=== PATIENT | female | born 1955 ===

== ENCOUNTER 2016-09-08 03:25 | Emergency (ER) | payer MEDICAID ==
[2016-09-08 03:26] VITALS: BMI 31.1
[2016-09-08 03:50] LABS: RBC URINE < 1 /hpf (0-3); URINE BILIRUBIN NEGATIVE (NEGATIVE); URINE BLOOD NEGATIVE (NEGATIVE); URINE COLOR Straw (YELLOW); URINE GLUCOSE (UA) NORMAL (Normal); URINE KETONE NEGATIVE (NEGATIVE); URINE LEUKOCYTE ESTERASE NEG Leu/uL (Negative); URINE PROTEIN NEGATIVE (NEGATIVE); URINE UROBILINOGEN NORMAL mg/dL (0.2-1.0)
[2016-09-08 04:25] LABS: BASO % 0.7 % (0.0-2.0); EOS # 0.1 K/uL (0.0-0.7); EOS % 1.1 % (0.0-4.0); HEMATOCRIT 35.1 % (34.0-47.0); LYMPH # 2.9 K/uL (1.0-4.3); LYMPH % 53.3 % (20.0-40.0); MEAN CELL VOLUME 91.1 fL (81.0-99.0); MEAN CORPUSCULAR HEMOGLOBIN 30.2 pg (27.0-31.0); MEAN CORPUSCULAR HGB CONC 33.2 g/dL (33.0-37.0); MEAN PLATELET VOLUME 9.3 fL (7.2-11.7); MONO # 0.5 K/uL (0.0-0.8); MONO % 8.2 % (0.0-10.0); NRBC % 0.2 % (0.0-2.0); RED CELL DISTRIBUTION WIDTH 14.3 % (11.5-14.5); WHITE BLOOD COUNT 5.5 K/uL (4.8-10.8)
[2016-09-08 04:32] LABS: CHLORIDE 106 mmol/L (98-107); POTASSIUM 4.1 mmol/L (3.6-5.2); SODIUM 139 mmol/L (132-148)
[2016-09-08 04:34] LABS: AST/SGOT 24 U/L (14-36); BILIRUBIN,TOTAL 0.3 mg/dL (0.2-1.3); CARBON DIOXIDE 26 mmol/L (22-30); GFR AFRICAN-AMERICAN > 60
[2016-09-08 04:35] LABS: ALB/GLOB RATIO 1.1 (1.0-2.1); ALKALINE PHOSPHATASE 42 U/L (38-126); ALT/SGPT 27 U/L (9-52); BLOOD UREA NITROGEN 14 mg/dL (7-17); CALCIUM 8.4 mg/dl (8.6-10.4); GLUCOSE,RANDOM 102 mg/dL (65-105); TOTAL PROTEIN 6.6 g/dL (6.3-8.3)
--- NOTE | 2016-09-08 04:57 | C.PDOC ---
History Of Present Illness 61 year old female presents to the ED with complaints of polyuria and abdominal bloating for two days. Patient has a history of frequent UTIs and denies diabetes, fever, or dysuria. Time Seen by Provider: 09/08/16 04:02 Chief Complaint (Nursing): Female Genitourinary History Per: Patient History/Exam Limitations: no limitations Onset/Duration Of Symptoms: Days (2) Current Symptoms Are (Timing): Still Present Location Of Pain/Discomfort: Diffuse Radiation Of Pain To:: None Quality Of Discomfort: "Pain" Associated Symptoms: denies: Fever, Chills, Nausea, Vomiting Recent travel outside of the [place]: No Abnormal Vaginal Bleeding: No Past Medical History Reviewed: Historical Data, Nursing Documentation, Vital Signs Vital Signs: Last Vital Signs Temp 98 F 09/08/16 05:04 Pulse 60 09/08/16 05:04 Resp 20 09/08/16 05:04 BP 153/90 H 09/08/16 05:04 Pulse Ox 100 09/08/16 05:04 - Medical History PMH: Hypothyroidism Surgical History: - [facility] Procedures INJECT/INFUSE NEC (03/21/14) Family History: States: Unknown Family Hx - Social History Hx Alcohol Use: No Hx Substance Use: No - Immunization History Hx Tetanus Toxoid Vaccination: No Hx Influenza Vaccination: No Hx Pneumococcal Vaccination: No Review Of Systems Constitutional: Negative for: Fever, Chills, Sweats Cardiovascular: Negative for: Chest Pain, Palpitations Gastrointestinal: Positive for: Other (polyuria and abdominal bloating ). Negative for: Nausea, Vomiting Physical Exam - Physical Exam Appears: Non-toxic, No Acute Distress, Other (central obesity ) Skin: Warm, Dry Head: Atraumatic Eye(s): bilateral: Normal Inspection Oral Mucosa: Moist Neck: Supple Chest: Symmetrical, No Deformity Cardiovascular: Rhythm Regular Respiratory: No Rales, No Rhonchi, No Stridor, No Wheezing Gastrointestinal/Abdominal: Soft, No Tenderness, No Distention, No Guarding, No Rebound Extremity: Normal ROM, No Tenderness Neurological/Psych: Oriented x3 ED Course And Treatment - Laboratory Results Result Diagrams: 09/08/16 04:21 09/08/16 04:21 Lab Interpretation: Normal (ua neg.) O2 Sat by Pulse Oximetry: 98 (room air ) - Other Rad abd x 3 X-Ray: Interpreted by Me (+FOS) Reevaluation Time: 04:56 Reassessment Condition: Unchanged Medical Decision Making Medical Decision Making: constipation Disposition Doctor Will See Patient In The: Office Counseled Patient/Family Regarding: Studies Performed, Diagnosis - Disposition Referrals: Madan Shelley MD [Medical Doctor] - Disposition: HOME/ ROUTINE Disposition Time: 04:57 Condition: GOOD Additional Instructions: cholo un purgante ahora (Citrato de Magnesio) y re-evalua sigala molestia del abdomen despues de usar el sera 2-3 veces Cholo un esuavesante de los heces 2 veces al lauryn come mas saludable, mas verduras crudas cholo mas agua. Sigue con sigala medico kelsy necessario. Instructions: Constipation (ED), Gas and Bloating (ED) Print Language: SETSWANA - Clinical Impression Clinical Impression: Colicky periumbilical abdominal pain - Scribe Statement The provider has reviewed the documentation as recorded by the Scribe Julieta Juárez All medical record entries made by the Scribe were at my direction and personally dictated by me. I have reviewed the chart and agree that the record accurately reflects my personal performance of the history, physical exam, medical decision making, and the department course for this patient. I have also personally directed, reviewed, and agree with the discharge instructions and disposition.
[2016-09-08 05:08] VITALS: BP 153/90; PULSE 60; RESP 20; TEMP 98
[2016-09-08 07:08] VITALS: O2SAT 98
--- NOTE | 2016-09-08 11:19 | RAD ---
PROCEDURE: Radiographs of the chest and abdomen (obstructive series) HISTORY: Abdominal pain COMPARISON: No prior. TECHNIQUE: AP radiograph of the chest, with upright and supine radiographs of the abdomen. FINDINGS: CHEST: Lungs: Clear. Cardiovascular: Normal size heart. No pulmonary vascular congestion. Pleura: No pleural fluid. No pneumothorax. Other findings: None. ABDOMEN AND PELVIS: Bowel: There is large amount of stool in the colon. No evidence of mechanical obstruction. Free air: None. Bones: Unremarkable. Other findings: None. IMPRESSION: Constipation. No evidence of bowel obstruction. Clear lungs.
== END 2016-09-08 05:23 | disposition home or self-care (01) ==
LOC: C.ER 03:25
DX: R10.33 Periumbilical pain (principal)

== ENCOUNTER 2016-10-04 11:26 | Emergency (ER) | payer MEDICAID ==
[2016-10-04 11:26] VITALS: BMI 31.1
[2016-10-04 11:50] VITALS: BP 133/85
--- NOTE | 2016-10-04 13:27 | C.PDOC ---
History Of Present Illness 61 y/o female presents to the ED with complaints of right shoulder pain x1 month. Pt denies direct injury but states she was exercising and minor injury possible. Pt seen by PMD, given lidoderm patch and tylenol/codeine. Pt states no pain relief with meds. Pain is worse at night. Decreased ROM due to pain. He denies weakness, numbness or any other complaints. Time Seen by Provider: 10/04/16 12:14 Chief Complaint (Nursing): Upper Extremity Problem/Injury History Per: Patient History/Exam Limitations: no limitations Onset/Duration Of Symptoms: Days Current Symptoms Are (Timing): Still Present Quality: "Pain" Severity: Moderate Exacerbating Factor(s): Movement, Worse At Night Recent travel outside of the [place]: No Past Medical History Reviewed: Historical Data, Nursing Documentation, Vital Signs Vital Signs: Last Vital Signs Temp 98 F 10/04/16 13:50 Pulse 85 10/04/16 13:50 Resp 18 10/04/16 13:50 BP 133/85 10/04/16 11:48 Pulse Ox 100 10/04/16 14:02 - Medical History PMH: Hypothyroidism Surgical History: - [facility] Procedures INJECT/INFUSE NEC (03/21/14) Family History: States: Unknown Family Hx - Social History Hx Alcohol Use: No Hx Substance Use: No - Immunization History Hx Tetanus Toxoid Vaccination: No Hx Influenza Vaccination: No Hx Pneumococcal Vaccination: No Review Of Systems Constitutional: Negative for: Fever Musculoskeletal: Positive for: Shoulder Pain (right) Neurological: Negative for: Weakness, Numbness Physical Exam - Physical Exam Appears: Non-toxic, No Acute Distress Skin: Warm, Dry, No Rash Head: Atraumatic, Normacephalic Extremity: Normal ROM, Tenderness (diffuse right shoulder tenderness), Other ( soft tissue mass to right anterior acromioclavicular joint) Pulses: Right Radial: Normal Neurological/Psych: Oriented x3, Normal Speech, Normal Cognition, Normal Motor, Normal Sensation ED Course And Treatment O2 Sat by Pulse Oximetry: 100 (room air) Pulse Ox Interpretation: Normal - Other Rad Right shoulder xaray X-Ray: Read By Radiologist Interpretation: Accession No. : [id number]. Patient Name / ID : DARRIUS WOODARD / [id number]. Exam Date : 10/04/2016 13:15:36 ( Approved ). Study Comment : Sex / Age : F / 61Y. Creator : Nakita Nuñez MD. Dictator : Nakita Nuñez MD. Clinical Cytopathologist : Business Executive : Nakita Nueñz MD. Approver2 : Report Date : 15:02:34. My Comment : . PROCEDURE: Radiographs of the Right Shoulder. HISTORY: Shoulder pain. COMPARISON: No prior. FINDINGS: BONES: Bone alignment and mineralization. JOINTS: Glenohumeral and acromioclavicular joints preserved. No osteoarthritis. SOFT TISSUES: Normal. OTHER FINDINGS: None. IMPRESSION: No acute displaced fracture or dislocation. Progress Note: Plan: XR right shoulder, Arm sling was applied, follow up with ortho Disposition - Disposition Referrals: Kami Machado MD [Staff Provider] - Disposition: HOME/ ROUTINE Disposition Time: 13:52 Condition: STABLE Additional Instructions: Follow up with PMD / Orthopedist within 1-2 days. Return to ED if feel worse. Prescriptions: Ibuprofen [Motrin Tab] 600 mg PO Q8 #30 tab oxyCODONE/Acetaminophen [Percocet 5/325 mg Tab] 1 tab PO QID PRN #20 tab PRN Reason: Pain Instructions: Shoulder Pain (ED) Forms: [facility] (Chinese) - Clinical Impression Clinical Impression: Shoulder pain - PA / MAIL SORTING SUPERVISOR / Resident Statement MD/DO has reviewed & agrees with the documentation as recorded. - Scribe Statement The provider has reviewed the documentation as recorded by the Yasmani Han All medical record entries made by the Fcoibe were at my direction and personally dictated by me. I have reviewed the chart and agree that the record accurately reflects my personal performance of the history, physical exam, medical decision making, and the department course for this patient. I have also personally directed, reviewed, and agree with the discharge instructions and disposition.
[2016-10-04 13:51] VITALS: PULSE 85; RESP 18; TEMP 98
[2016-10-04 14:01] VITALS: O2SAT 100
--- NOTE | 2016-10-04 15:04 | RAD ---
PROCEDURE: Radiographs of the Right Shoulder HISTORY: Shoulder pain COMPARISON: No prior. FINDINGS: BONES: Bone alignment and mineralization JOINTS: Glenohumeral and acromioclavicular joints preserved. No osteoarthritis. SOFT TISSUES: Normal. OTHER FINDINGS: None. IMPRESSION: No acute displaced fracture or dislocation.
== END 2016-10-04 14:06 | disposition home or self-care (01) ==
LOC: C.ER 11:26
DX: M25.511 Pain in right shoulder (principal)

== ENCOUNTER 2017-09-21 13:06 | Emergency (ER) | payer MEDICAID ==
[2017-09-21 13:06] VITALS: BMI 31.1
[2017-09-21 13:11] VITALS: RESP 18; O2SAT 98
[2017-09-21] MEDS ORDERED: Belladonna-Phenobarbital PO STA (13:32)
[2017-09-21] MEDS ORDERED: Sodium Chloride 0.9% 1,000 ML IV ONE (13:32)
[2017-09-21] MEDS ORDERED: Belladonna-Phenobarbital ONE (13:38)
[2017-09-21 14:25] LABS: BASO % 0.3 % (0.0-2.0); EOS % 0.2 % (0.0-4.0); HEMOGLOBIN 12.3 g/dL (11.0-16.0); LYMPH % 15.4 % (20.0-40.0); MEAN CELL VOLUME 90.4 fL (81.0-99.0); MEAN CORPUSCULAR HEMOGLOBIN 30.9 pg (27.0-31.0); MEAN CORPUSCULAR HGB CONC 34.2 g/dL (33.0-37.0); MEAN PLATELET VOLUME 9.5 fL (7.2-11.7); MONO # 0.8 K/uL (0.0-0.8); MONO % 6.2 % (0.0-10.0); NEUT # 10.2 K/uL (1.8-7.0); NEUT % 77.9 % (50.0-75.0); RBC 3.99 Mil/uL (3.80-5.20); RED CELL DISTRIBUTION WIDTH 14.2 % (11.5-14.5)
[2017-09-21 14:26] LABS: WHITE BLOOD COUNT 13.1 K/uL (4.8-10.8)
[2017-09-21 14:38] LABS: ALB/GLOB RATIO 1.4 (1.0-2.1); ALBUMIN 4.6 g/dL (3.5-5.0); ALT/SGPT 27 U/L (9-52); AST/SGOT 26 U/L (14-36); BLOOD UREA NITROGEN 10 mg/dL (7-17); CALCIUM 9.2 mg/dl (8.6-10.4); GFR AFRICAN-AMERICAN > 60; GFR NON-AFRICAN AMERICAN > 60; LIPASE 92 U/L (23-300); SQUAMOUS EPITHIAL 2 /hpf (0-5); URINE BILIRUBIN NEGATIVE (NEGATIVE); URINE BLOOD 2+ (NEGATIVE); URINE CLARITY Clear (Clear); URINE COLOR Yellow (YELLOW); URINE GLUCOSE (UA) NORMAL (Normal); URINE LEUKOCYTE ESTERASE TRACE Leu/uL (Negative); URINE PROTEIN NEGATIVE (NEGATIVE); URINE UROBILINOGEN NORMAL mg/dL (0.2-1.0)
[2017-09-21] MEDS ORDERED: Alum-Mag Hydrox-Simethicone Susp (30 mL) PO STA (14:58)
[2017-09-21] MEDS ORDERED: Alum-Mag Hydrox-Simethicone Susp (30 mL) ONE (15:05)
--- NOTE | 2017-09-21 16:14 | C.PDOC ---
Time Seen by Provider: 09/21/17 13:25 Chief Complaint (Nursing): Abdominal Pain History Per: Patient, Family Onset/Duration Of Symptoms: Days (1) Current Symptoms Are (Timing): Still Present Severity: Moderate Location Of Pain/Discomfort: Diffuse, Epigastric Radiation Of Pain To:: None Quality Of Discomfort: Cramping, "Pain" Associated Symptoms: Nausea, Vomiting, Diarrhea Exacerbating Factors: Food Alleviating Factors: None Last Bowel Movement: Today Recent travel outside of the [place]: No Additional History Per: Prior Records Abnormal Vaginal Bleeding: No Past Medical History Reviewed: Historical Data, Nursing Documentation, Vital Signs Vital Signs: Last Vital Signs Temp 100.3 F H 09/21/17 13:08 Pulse 86 09/21/17 13:08 Resp 18 09/21/17 13:08 BP 158/99 H 09/21/17 13:08 Pulse Ox 98 09/21/17 13:08 - Medical History PMH: Hypothyroidism Surgical History: - [facility] Procedures INJECT/INFUSE NEC (03/21/14) Family History: States: Unknown Family Hx - Social History Hx Alcohol Use: No Hx Substance Use: No - Immunization History Hx Tetanus Toxoid Vaccination: No Hx Influenza Vaccination: No Hx Pneumococcal Vaccination: No Review Of Systems Except As Marked, All Systems Reviewed And Found Negative. Constitutional: Positive for: Malaise Cardiovascular: Negative for: Chest Pain Respiratory: Negative for: Shortness of Breath Gastrointestinal: Positive for: Nausea, Vomiting, Abdominal Pain, Diarrhea. Negative for: Melena, Hematochezia, Hematemesis Genitourinary: Negative for: Dysuria Musculoskeletal: Negative for: Neck Pain, Back Pain Skin: Negative for: Rash Neurological: Negative for: Weakness, Numbness Physical Exam - Physical Exam Appears: Non-toxic, No Acute Distress Skin: Normal Color, Warm, Dry, No Rash Head: Atraumatic, Normacephalic Eye(s): bilateral: Normal Inspection, PERRL, EOMI Neck: Normal ROM, Supple Cardiovascular: Rhythm Regular Respiratory: Normal Breath Sounds, No Accessory Muscle Use Gastrointestinal/Abdominal: Soft, Tenderness (nonspecific), No Guarding, No Rebound Back: No CVA Tenderness Extremity: Normal ROM Neurological/Psych: Oriented x3, Normal Motor, Normal Sensation ED Course And Treatment - Laboratory Results Result Diagrams: 09/21/17 14:22 09/21/17 14:22 O2 Sat by Pulse Oximetry: 98 Pulse Ox Interpretation: Normal Progress Note: Pt feels much better and and wants to go home. No abdominal tenderness. Reassessment Condition: Improved Progress - Interventions Interventions:: Observation, Intravenous fluid - Medications Administered Oral: Antacid Intravenous: Antiemetic, H-2 ke, NSAID - Data Reviewed Data Reviewed: Lab, Old records - Patient Status Patient status: Mostly improved - Continuity of Care Discussed patient case with:: Patient, Family-HIPPA compliant, ED Nurse - Patient Plan Patient Plan: Discharge, F/U with PCP Disposition Counseled Patient/Family Regarding: Studies Performed, Diagnosis, Need For Followup, Rx Given - Disposition Referrals: Madan Shelley MD [Medical Doctor] - Disposition: HOME/ ROUTINE Disposition Time: 16:14 Condition: IMPROVED Additional Instructions: Drink plenty of fluids. Follow up with your doctor within 2-3 days. Return to the ER if you develop bleeding, fever, not tolerating fluids, pain moves to right lower side, worsening of symptoms or if you have any other concerns. Prescriptions: Bismuth Subsalicylate [Pepto Bismol] 2 tab PO Q1 PRN #16 ctb PRN Reason: Diarrhea Ondansetron [Zofran] 4 mg PO Q8H PRN #15 tab PRN Reason: Nausea/Vomiting Instructions: Viral Gastroenteritis, Adult (DC) Forms: [facility] (Romanian) Print Language: PASHTO - Clinical Impression Clinical Impression: Abdominal pain, Nausea, vomiting, and diarrhea
[2017-09-21 16:31] VITALS: BP 126/73; PULSE 78; TEMP 98
== END 2017-09-21 16:31 | disposition home or self-care (01) ==
LOC: C.ER 13:06
DX: R10.9 Unspecified abdominal pain (principal); R11.2 Nausea with vomiting, unspecified; R19.7 Diarrhea, unspecified; E03.9 Hypothyroidism, unspecified
CPT/HCPCS: 80053; 81001; 83690; 85025; 96374; 96375; 99284; J1885; J2405; J7030

== ENCOUNTER 2017-09-22 01:45 | Inpatient (IN) | payer MEDICAID ==
[2017-09-22 01:46] VITALS: BMI 31.1
[2017-09-22] MEDS ORDERED: Sodium Chloride 0.9% 1,000 ML IV ONE (02:02)
[2017-09-22] MEDS ORDERED: Sodium Chloride 0.9% 1,000 ML ONE (02:10)
[2017-09-22] MEDS ORDERED: Morphine 4 MG/ML VIAL ONE (02:10)
[2017-09-22 03:00] LABS: BASO % 0.2 % (0.0-2.0); EOS % 0.3 % (0.0-4.0); HEMOGLOBIN 12.1 g/dL (11.0-16.0); LYMPH # 2.5 K/uL (1.0-4.3); LYMPH % 28.1 % (20.0-40.0); MEAN CORPUSCULAR HEMOGLOBIN 30.6 pg (27.0-31.0); MEAN CORPUSCULAR HGB CONC 33.6 g/dL (33.0-37.0); MEAN PLATELET VOLUME 9.3 fL (7.2-11.7); MONO # 0.4 K/uL (0.0-0.8); MONO % 4.1 % (0.0-10.0); NEUT # 6.1 K/uL (1.8-7.0); NEUT % 67.3 % (50.0-75.0); RBC 3.94 Mil/uL (3.80-5.20); RED CELL DISTRIBUTION WIDTH 13.7 % (11.5-14.5)
[2017-09-22 03:13] LABS: ALB/GLOB RATIO 1.6 (1.0-2.1); ALBUMIN 4.5 g/dL (3.5-5.0); ALT/SGPT 28 U/L (9-52); AST/SGOT 36 U/L (14-36); BLOOD UREA NITROGEN 8 mg/dL (7-17); CALCIUM 8.6 mg/dl (8.6-10.4); GFR AFRICAN-AMERICAN > 60; GFR NON-AFRICAN AMERICAN 56; LIPASE 95 U/L (23-300)
[2017-09-22] MEDS ORDERED: Iodixanol 320 MG/ML 100 ML BOTTLE IV ONE (04:19)
--- NOTE | 2017-09-22 04:26 | C.PDOC ---
History Of Present Illness 62 year old female BIBA for evaluation of right sided abdominal pain with diarrhea since yesterday and multiple episodes of nausea and vomiting today. Patient was seen in the ED yesterday and diagnosed with gastroenteritis; she reports symptoms persisted and worsened. Patient denies fever, chills, dysuria/ hematuria, back/flank pain. Time Seen by Provider: 09/22/17 01:47 Chief Complaint (Nursing): Fever History Per: Patient History/Exam Limitations: no limitations Onset/Duration Of Symptoms: Days (2) Current Symptoms Are (Timing): Still Present Sick Contacts (Context): None Associated Symptoms: Nausea, Vomiting, Diarrhea Severity: Moderate Additional History Per: Patient Past Medical History Reviewed: Historical Data, Nursing Documentation, Vital Signs Vital Signs: Last Vital Signs Temp 99.3 F 09/24/17 16:00 Pulse 74 09/24/17 16:00 Resp 20 09/24/17 16:00 BP 144/87 09/24/17 16:00 Pulse Ox 100 09/24/17 16:00 - Medical History PMH: Hypothyroidism Surgical History: - [facility] Procedures INJECT/INFUSE NEC (03/21/14) Family History: States: No Known Family Hx - Social History Hx Alcohol Use: No Hx Substance Use: No - Immunization History Hx Tetanus Toxoid Vaccination: No Hx Influenza Vaccination: No Hx Pneumococcal Vaccination: No Review Of Systems Constitutional: Positive for: Fever. Negative for: Chills Cardiovascular: Negative for: Chest Pain Respiratory: Negative for: Cough, Shortness of Breath Gastrointestinal: Positive for: Nausea, Vomiting, Abdominal Pain, Diarrhea Genitourinary: Negative for: Dysuria, Hematuria Musculoskeletal: Negative for: Back Pain Skin: Negative for: Rash Neurological: Negative for: Weakness, Numbness Physical Exam - Physical Exam Appears: Well, Non-toxic, In Acute Distress, Other (moaning, shivering) Skin: Normal Color, Warm, Dry, No Rash Head: Normacephalic Eye(s): bilateral: Normal Inspection Oral Mucosa: Moist Neck: Supple Cardiovascular: Rhythm Regular Respiratory: Normal Breath Sounds, No Rales, No Rhonchi, No Wheezing Gastrointestinal/Abdominal: Bowel Sounds, Soft, Tenderness (RLQ TTP, (+) MCBurney's), No Guarding, No Rebound, Other ((-) Ramos's) Back: No CVA Tenderness Extremity: Normal ROM, No Tenderness, No Swelling Neurological/Psych: Oriented x3 Gait: Steady ED Course And Treatment - Laboratory Results Result Diagrams: 09/24/17 07:13 09/24/17 07:13 ECG: Interpreted By Me, Viewed By Me (NSR 83 bpm, left axis deviation, no acute ST/T wave changes) ECG Interpretation: Normal O2 Sat by Pulse Oximetry: 97 (ON RA) Pulse Ox Interpretation: Normal - CT Scan/US CT abd/pelvis Other Rad Studies (CT/US): Read By Radiologist, Radiology Report Reviewed CT/US Interpretation: EXAM DATE/TIME: 09/22/2017 2:02 AM. CLINICAL HISTORY: 62 years old, female; Pain; Abdominal pain; Patient HX: 11-24-15; Additional info : Rlq pain, diarrhea,. vomiting. TECHNIQUE: Axial computed tomography images of the abdomen and pelvis with intravenous contrast. All CT scans at this facility use at least one of these dose optimization techniques: automated. exposure control; mA and/or kV adjustment per patient size (includes targeted exams where dose is. matched to clinical indication); or iterative reconstruction. Coronal and sagittal reformatted images were created and reviewed. CONTRAST: 100 ml of [id number] administered intravenously. COMPARISON: CT - ABD PELVIS W/O PO OR IV CONT 2015-11-24 11:09. FINDINGS: Lower thorax: Atelectasis in the bases. ABDOMEN: Liver: Stable liver low densities. Gallbladder and bile ducts: Normal. No calcified stones. No ductal dilation. Pancreas: Normal. No ductal dilation. Spleen: Normal. No splenomegaly. Adrenals: Normal. No mass. Kidneys and ureters: Stable bilateral renal densities. No hydronephrosis. Stomach and bowel: Diverticulosis. Appendix: There is a 1 cm tubular structure which appears to arise from the cecum medially with fat. stranding and surrounding lymphadenopathy image 112, concerning for acute appendicitis. No free. air. There is evidence of a few small bowel air-fluid levels suggesting ileus. PELVIS: Bladder: Unremarkable as visualized. Reproductive: Unremarkable as visualized. ABDOMEN and PELVIS: Intraperitoneal space: Small volume of free fluid in the pelvis. Bones/joints: Degenerative changes in the spine. Soft tissues: Unremarkable. Vasculature: Normal. No abdominal aortic aneurysm. Lymph nodes: IMPRESSION: There is a 1 cm tubular structure which appears to arise from the cecum medially with fat stranding. and surrounding lymphadenopathy image 112, concerning for acute appendicitis. No free air. There is. evidence of a few small bowel air-fluid levels suggesting ileus. Thank you for allowing us to participate in the care of your patient. Dictated and Authenticated by: Lake Short MD. 09/22/2017 5:39 AM Eastern Time ([place] & [place]) Progress Note: Plan: Blood work, CT abd/pelvis, UA ordered and reviewed. Patient given IV NS bolus, IV Morphine, IV zofran. 5:50am - Spoke with surgery resident, she will come down and evaluate patient. IV Zosyn and IV Flagyl ordered. Reevaluation Time: 06:10 Reassessment Condition: Improved (Patient resting more comfortably after IV morphine.) - Physician Consult Information Physician Contacted: Anmol Toney Outcome Of Conversation: Patient's PMD does not admit to [facility]. Discussed patient with medicine rn lactation consultant, agrees with admission to his service for acute appendicitis with Dr. Cadet for surgery. Disposition - Disposition Disposition: HOSPITALIZED Disposition Time: 06:19 Condition: STABLE - Clinical Impression Clinical Impression: Acute appendicitis - Scribe Statement The provider has reviewed the documentation as recorded by the Scribe Krishan Adames All medical record entries made by the Scribe were at my direction and personally dictated by me. I have reviewed the chart and agree that the record accurately reflects my personal performance of the history, physical exam, medical decision making, and the department course for this patient. I have also personally directed, reviewed, and agree with the discharge instructions and disposition. Decision To Admit - Pt Status Changed To: Hospital Disposition Of: Inpatient - Admit Certification Admit to Inpatient:: After my assessment, the patient will require hospitalization for at least two midnights. This is because of the severity of symptoms shown, intensity of services needed, and/or the medical risk in this patient being treated as an outpatient. - InPatient: Physician Admission Certification:: see notes - . Bed Request Type: Regular Admitting Physician: Anmol Toney Patient Diagnosis: Acute appendicitis
[2017-09-22 05:30] LABS: SQUAMOUS EPITHIAL 1 /hpf (0-5); URINE BILIRUBIN NEGATIVE (NEGATIVE); URINE BLOOD 1+ (NEGATIVE); URINE CLARITY Clear (Clear); URINE COLOR Yellow (YELLOW); URINE GLUCOSE (UA) NORMAL (Normal); URINE LEUKOCYTE ESTERASE NEG Leu/uL (Negative); URINE PROTEIN NEGATIVE (NEGATIVE); URINE UROBILINOGEN NORMAL mg/dL (0.2-1.0)
[2017-09-22] MEDS ORDERED: Piperacill/Tazo 3.375gm in Dex 3.375 GM/50 ML BAG IVPB STA (05:47)
[2017-09-22] MEDS ORDERED: metroNIDAZOLE IV 500 mg/100 ml 500 MG/100 ML BAG IV STA (05:47)
[2017-09-22] MEDS ORDERED: Sodium Chloride 0.9% 500 ML IV ONE (05:56)
[2017-09-22] MEDS ORDERED: metroNIDAZOLE IV 500 mg/100 ml 500 MG/100 ML BAG ONE (06:02)
[2017-09-22] MEDS ORDERED: Piperacillin/Tazobact 3.375 gm 100 ML IVPB ONE (06:02)
[2017-09-22 06:43] LABS: INR 1.3; PROTHROMBIN TIME 14.1 SECONDS (9.7-12.2)
--- NOTE | 2017-09-22 07:51 | RAD ---
Chest x-ray single frontal view History: Preoperative evaluation. Comparison: 05/12/2016 Findings: Mild venous congestion. Right hilar prominence. Mild cardiomegaly. Degenerative changes in the spine and shoulders. Impression: Mild venous congestion. Right hilar prominence. Mild cardiomegaly.
--- NOTE | 2017-09-22 09:16 | CT ---
Date of service: 09/22/2017 PROCEDURE: CT Abdomen and Pelvis with intravenous contrast. HISTORY: Right lower quadrant pain, diarrhea, vomiting COMPARISON: 11/24/2015 TECHNIQUE: Contiguous axial images of the abdomen and pelvis. Oral contrast was administered. No IV contrast given. Coronal and Sagittal reformats generated. Radiation dose: Total exam DLP = 742 mGy-cm. This CT exam was performed using one or more of the following dose reduction techniques: Automated exposure control, adjustment of the mA and/or kV according to patient size, and/or use of iterative reconstruction technique. FINDINGS: LOWER THORAX: Atelectasis at the lung bases. LIVER: Scattered low-attenuation lesions in the liver, too small to adequately characterize. A 1.3 centimeter low-attenuation lesion in the left hepatic lobe demonstrates a Hounsfield unit attenuation of 20, indeterminate. Correlation with multiphasic CT may be helpful if clinically indicated. GALLBLADDER AND BILE DUCTS: Unremarkable. PANCREAS: Unremarkable. No mass. No ductal dilatation. SPLEEN: Unremarkable. No splenomegaly. ADRENALS: Unremarkable. KIDNEYS AND URETERS: Multiple low-attenuation lesions throughout the liver which may represent cysts. Correlation with multiphasic CT or MR may be helpful for further evaluation if clinically indicated. BLADDER: Grossly unremarkable. REPRODUCTIVE: Unremarkable. APPENDIX: 1 centimeter tubular structure which appears to arise from the cecum medially with fat stranding and surrounding lymphadenopathy concerning for acute appendicitis. Few adjacent small bowel air-fluid levels suggesting ileus. BOWEL: Diverticulosis. Under distended and or mildly thickened descending and sigmoid colon. Fluid-filled right hemicolon. PERITONEUM: Small amount of free fluid in the pelvis. LYMPH NODES: Unremarkable. No enlarged lymph nodes. VASCULATURE: Unremarkable. No aortic aneurysm. BONES: Degenerative changes in the spine. OTHER FINDINGS: None. IMPRESSION: 1 centimeter tubular structure which appears to arise from the cecum medially with fat stranding and surrounding lymphadenopathy concerning for acute appendicitis. Few adjacent small bowel air-fluid levels suggesting ileus. Clinical correlation. Small amount of free fluid in the pelvis. Additional findings as above. These findings were preliminarily reported at 5:39 a.m. on 09/22/[address] Lake Short from [facility].
[2017-09-22] MEDS ORDERED: Enoxaparin 150 mg Syringe SC SCH (10:00)
--- NOTE | 2017-09-22 11:16 | CP.PCM.CON ---
History of Present Illness - History of Present Illness History of Present Illness: 62F, w/PMH of hypothyroidism, presented to ED for sharp, nonradiating, constant , RLQ abdominal pain refractory to antacids. Pt has had similar pain the past, but usually resolved with antacids. Eating exacerbated her symptoms. No medications helped with the pain. Admits to fevers, nausea, and diarrhea. Denies chills, vomiting, SOB, or CP. CT shows acute appendicitis with air fluid levels possible small bowel ileus. PMH: see above PSH: none ALL: none Soc: denies t/a/d Review of Systems - Constitutional Constitutional: Fever, Weakness. absent: Chills, Headache - EENT Eyes: absent: Blurred Vision, Change in Vision Ears: absent: Tinnitus, Dizziness Nose/Mouth/Throat: absent: Nasal Congestion, Nasal Discharge - Cardiovascular Cardiovascular: absent: Chest Pain, Dyspnea - Respiratory Respiratory: absent: Cough, Dyspnea - Gastrointestinal Gastrointestinal: Abdominal Pain, Bloating, Cramping, Diarrhea, Nausea. absent : Vomiting - Genitourinary Genitourinary: absent: Difficulty Urinating, Dysuria - Musculoskeletal Musculoskeletal: absent: Back Pain, Limited Range of Motion - Integumentary Integumentary: absent: Bleeding Lesions, Changing Lesions - Neurological Neurological: absent: Abnormal Hearing, Abnormal Movements, Confusion - Psychiatric Psychiatric: absent: Anxiety, Depression - Hematologic/Lymphatic Hematologic: absent: Easy Bleeding, Easy Bruising Past Patient History - Infectious Disease Hx of Infectious Diseases: None - Past Social History Smoking Status: Never Smoked - CARDIAC Hx Hypertension: No - ENDOCRINE/METABOLIC Hx Hypothyroidism: Yes - GENITOURINARY/GYNECOLOGICAL Hx Urinary Tract Infection: Yes - PSYCHIATRIC Hx Substance Use: No - SURGICAL HISTORY Hx Surgeries: Yes Hx Section: Yes (x1) - ANESTHESIA Hx Anesthesia: Yes Hx Anesthesia Reactions: No Meds Allergies/Adverse Reactions: Allergies Allergy/AdvReac Type Severity Reaction Status Date / Time No Known Allergies Allergy Verified 05/12/16 09:38 - Medications Medications: Current Medications Enoxaparin Sodium (Lovenox) 40 mg SC DAILY [facility] Metronidazole (Flagyl) 500 mg in 100 mls @ 100 mls/hr IVPB Q8H [facility] PRN Reason: Protocol Piperacillin Sod/Tazobactam (Sod 3.375 gm/ Sodium Chloride) 100 mls @ 200 mls/ hr IVPB Q6H [facility] PRN Reason: Protocol Morphine Sulfate (Morphine) 2 mg SC Q4 PRN PRN Reason: Pain, moderate (4-7) Physical Exam - Constitutional Appears: Well, Non-toxic, No Acute Distress - Head Exam Head Exam: ATRAUMATIC, NORMAL INSPECTION, NORMOCEPHALIC - Eye Exam Eye Exam: EOMI, Normal appearance - Respiratory Exam Respiratory Exam: Clear to Auscultation Bilateral, NORMAL BREATHING PATTERN - Cardiovascular Exam Cardiovascular Exam: REGULAR RHYTHM - GI/Abdominal Exam GI & Abdominal Exam: Distended, Normal Bowel Sounds, Soft, Tenderness. absent: Firm, Guarding, Rebound, Rigid - Rectal Exam Rectal Exam: Deferred - Neurological Exam Neurological exam: Alert, Oriented x3 - Psychiatric Exam Psychiatric exam: Normal Affect, Normal Mood - Skin Skin Exam: Dry, Intact, Normal Color, Warm Results - Vital Signs Recent Vital Signs: Last Vital Signs Temp 100 F H 09/22/17 07:35 Pulse 83 09/22/17 07:33 Resp 16 09/22/17 07:33 BP 102/55 L 09/22/17 07:33 Pulse Ox 98 09/22/17 07:33 - Labs Result Diagrams: 09/22/17 02:55 09/22/17 02:55 Labs: Laboratory Results - last 24 hr 09/22/17 09/22/17 09/22/17 02:55 02:55 05:17 WBC 9.0 RBC 3.94 Hgb 12.1 Hct 35.8 MCV 91.0 MCH 30.6 MCHC 33.6 RDW 13.7 Plt Count 202 MPV 9.3 Neut % (Auto) 67.3 Lymph % (Auto) 28.1 [place] % (Auto) 4.1 Eos % (Auto) 0.3 Baso % (Auto) 0.2 Neut # (Auto) 6.1 Lymph # (Auto) 2.5 [place] # (Auto) 0.4 Eos # (Auto) 0.0 Baso # (Auto) 0.0 PT INR APTT Sodium 142 Potassium 3.4 L Chloride 104 Carbon Dioxide 26 Anion Gap 16 BUN 8 Creatinine 1.0 Est GFR ( Amer) > 60 Est GFR (Non-Af Amer) 56 Random Glucose 142 H Calcium 8.6 Total Bilirubin 1.1 AST 36 D ALT 28 Alkaline Phosphatase 59 Total Protein 7.3 Albumin 4.5 Globulin 2.8 Albumin/Globulin Ratio 1.6 Lipase 95 Urine Color Yellow Urine Clarity Clear Urine pH 6.0 Ur Specific [place] 1.015 Urine Protein Negative Urine Glucose (UA) Normal Urine Ketones Negative Urine Blood 1+ H Urine Nitrate Negative Urine Bilirubin Negative Urine Urobilinogen Normal Ur Leukocyte Esterase Neg Urine WBC (Auto) 2 Urine RBC (Auto) 2 Ur Squamous Epith Cells 1 Blood Type 09/22/17 09/22/17 06:28 06:28 WBC RBC Hgb Hct MCV MCH MCHC RDW Plt Count MPV Neut % (Auto) Lymph % (Auto) [place] % (Auto) Eos % (Auto) Baso % (Auto) Neut # (Auto) Lymph # (Auto) [place] # (Auto) Eos # (Auto) Baso # (Auto) PT 14.1 H INR 1.3 APTT 24 Sodium Potassium Chloride Carbon Dioxide Anion Gap BUN Creatinine Est GFR ( Amer) Est GFR (Non-Af Amer) Random Glucose Calcium Total Bilirubin AST ALT Alkaline Phosphatase Total Protein Albumin Globulin Albumin/Globulin Ratio Lipase Urine Color Urine Clarity Urine pH Ur Specific [place] Urine Protein Urine Glucose (UA) Urine Ketones Urine Blood Urine Nitrate Urine Bilirubin Urine Urobilinogen Ur Leukocyte Esterase Urine WBC (Auto) Urine RBC (Auto) Ur Squamous Epith Cells Blood Type B POSITIVE Assessment & Plan - Assessment and Plan (Free Text) Assessment: 62F w/ acute appendicitis and possible small bowel ileus Plan: Prep for OR today - patient consented NPO, IVF AM labs IV Abx pain management further recs per Dr. Any Saleh PGY1
[2017-09-22] MEDS: Piperacillin/Tazobact 3.375 GM in Sodium Chloride 100 ML IVPB SCH ×2 (11:37→18:29)
[2017-09-22 12:12] LABS: HEMOGLOBIN 11.6 g/dL (11.0-16.0); MEAN CELL VOLUME 90.2 fL (81.0-99.0); MEAN CORPUSCULAR HEMOGLOBIN 30.8 pg (27.0-31.0); MEAN CORPUSCULAR HGB CONC 34.2 g/dL (33.0-37.0); MEAN PLATELET VOLUME 8.8 fL (7.2-11.7); RBC 3.76 Mil/uL (3.80-5.20); RED CELL DISTRIBUTION WIDTH 13.9 % (11.5-14.5)
[2017-09-22 12:24] LABS: BLOOD UREA NITROGEN 8 mg/dL (7-17); CALCIUM 8.5 mg/dl (8.6-10.4); GFR AFRICAN-AMERICAN > 60; GFR NON-AFRICAN AMERICAN > 60
[2017-09-22] MEDS ORDERED: Succinylcholine Chloride 20 mg/ml Syr (5 ml) IV ONE (12:45)
[2017-09-22] MEDS ORDERED: Propofol 10 mg/ml Inj (20 ML) ONE ×2 (12:45→14:42)
[2017-09-22] MEDS ORDERED: HYDROmorphone 0.5 mg/0.5 ml ISec IVP PRN ×2 (12:52→15:42)
[2017-09-22] MEDS ORDERED: Neostigmine Methylsulfate 3mg/3ml Syringe IV ONE ×2 (12:52→15:09)
[2017-09-22] MEDS ORDERED: Lidocaine/Epinephrine 1% 1:100000 10 ML IJ ONE (13:24)
[2017-09-22] MEDS ORDERED: Bupivacaine 0.25% 20 ML INJ IJ ONE (13:24)
[2017-09-22] MEDS ORDERED: Albuterol HFA 90 mcg/actuation (8 g) ONE (15:13)
[2017-09-22] MEDS: Lactated Ringer's 1,000 ML IV SCH ×2 (15:24→22:41)
--- NOTE | 2017-09-22 15:31 | PCM.SURG1 ---
Surgeon's Initial Post Op Note - Surgeon's Notes Surgeon: Dr. Agarwal Outcomes Analyst: Dr. Norris PGY3 Type of Anesthesia: General Endo Pre-Operative Diagnosis: acute appendicitis Operative Findings: perforated acute appendicitis Post-Operative Diagnosis: see operative report Operation Performed: laparoscopic appendectomy w/ partial cecectomy. lysis of adhesions. drainage of abdominal phlegmon Specimen/Specimens Removed: appendix and base of cecum Estimated Blood Loss: EBL {In ML}: 50 Blood Products Given: N/A Drains Used: Abraham (19Fr) Post-Op Condition: Good Date of Surgery/Procedure: 09/22/17 Time of Surgery/Procedure: 13:00
[2017-09-22] MEDS: metroNIDAZOLE IV 500 mg/100 ml 500 MG/100 ML BAG IVPB SCH ×2 (15:40→23:11)
[2017-09-22] MEDS ORDERED: Lactated Ringer's 1,000 ML IV ONE (17:00)
[2017-09-22] MEDS: Morphine 4 MG/ML VIAL IVP PRN (21:57)
[2017-09-23] MEDS: Piperacillin/Tazobact 3.375 GM in Sodium Chloride 100 ML IVPB SCH ×4 (00:16→17:35)
[2017-09-23 01:07] VITALS: RESP 20
--- NOTE | 2017-09-23 01:28 | OP ---
PROCEDURE DATE: 09/22/2017 PREOPERATIVE DIAGNOSES: 1. Acute appendicitis and leukocytosis. 2. Severe abdominal pain. 3. Status post section with Extensive postoperative adhesions. POSTOPERATIVE DIAGNOSES: 1. Acute phlegmonous perforated appendicitis at base of Appendix 2. Extensive pelvic and multiple abdominal abscesses. 3. Postoperative adhesions due to previous section. PROCEDURES DONE: 1. Laparoscopic appendectomy. 2. Laparoscopic partial cecectomy. 3. Mobilization of the right colon. 4. Laparoscopic drainage of pelvic perihepatic and multiple abdominal abscesses. SURGEON: Nils Agarwal MD SPA DIRECTOR: Nomi Norris, PGY-2 resident. ANESTHESIA: General endotracheal tube anesthesia. ESTIMATED BLOOD LOSS: Around 50 mL. PATHOLOGY: 1. The appendix was sent for the pathology. 2. The cecum was sent for the pathology. DRAINS: A 19-Telugu Abraham drain was placed. COMPLICATIONS: None. INTRAOPERATIVE FINDINGS: The patient had extensive abscesses in the pelvis, in the perihepatic area as well as around the appendix and it was of large phlegmonous appendicitis with perforation at the base of the appendix, and right colon was mobilized to facilitate the operation. DESCRIPTION OF THE PROCEDURE: On intraoperative steps, this is a 62-year-old female who was diagnosed with acute appendicitis, and the patient was consented for the laparoscopic appendectomy possible open. Brought to the OR, placed in supine on the operating table. After induction of the anesthesia, abdomen was prepped and draped in the usual sterile fashion. A supraumbilical transverse incision was made after incising skin, subcutaneous tissue and the fascia. The Margaret port was placed. Pneumo was created. Another 12-mm port was placed in left lower quadrant, 5 mm port was placed in suprapubic region. The patient had extensive pelvic adhesions, so first pelvic adhesion was taken down with Harmonic scalpel and afterward, the 5-mm port was placed. Now, the patient had a large phlegmon of appendix, and first right colon was mobilized because it was a paracecal origin of the appendix. The tip of the appendix was identified. The patient had multiple pelvic, periappendicular, and perihepatic abscesses. They were all drained and now further dissection was done. The patient was found to have perforation and the gangrenous area at the ileocecal junction. Now, the cecum mesentery was mobilized, and cecectomy was done partially. The ileocecal junction was identified before cecectomy. The staple line on the cecum was viable. After that, again the suction irrigation of the peritoneal cavity was done with approximately 1.5 L of fluid. A 19 Telugu Abraham drain was placed in the right paracolic gutters. The drain was secured to the skin. All the ports were taken out under vision. The umbilical port site was closed in two layers; the fascia with 0 Vicryl interrupted suture and the skin with a 4-0 Monocryl. The specimen was sent off the table for the pathology. There was no complication. The patient was extubated in the OR, sent to the postanesthesia care unit in stable condition. There was no apparent complication. Nils Agarwal MD SALUD
[2017-09-23] MEDS: Lactated Ringer's 1,000 ML IV SCH ×2 (05:00→07:42)
[2017-09-23] MEDS: Morphine 4 MG/ML VIAL IVP PRN ×2 (05:28→16:08)
[2017-09-23] MEDS: metroNIDAZOLE IV 500 mg/100 ml 500 MG/100 ML BAG IVPB SCH ×3 (07:08→22:57)
--- NOTE | 2017-09-23 08:27 | CP.PCM.PN ---
Subjective - Date & Time of Evaluation Date of Evaluation: 09/23/17 Time of Evaluation: 08:19 - Subjective Subjective: 62F seen and evaluated at bedside this morning. NGT still in place. Pt c/o pain near incision sites. Denies BM or passing flatus. No acute events overnight. Denies f/c and n/v/d. Objective - Vital Signs/Intake and Output Vital Signs (last 24 hours): Temp Pulse Resp BP Pulse Ox 98.3 F 84 20 136/80 96 09/23/17 07:40 09/23/17 07:40 09/23/17 07:40 09/23/17 07:40 09/23/17 07:40 Intake and Output: 09/23/17 09/23/17 06:59 18:59 Intake Total 1000 Output Total 370 Balance 630 - Medications Medications: Current Medications Acetaminophen (Tylenol 325mg Tab) 650 mg PO Q6 PRN PRN Reason: Fever >100.4 F Enoxaparin Sodium (Lovenox) 40 mg SC DAILY [facility] Hydromorphone HCl (Dilaudid) 0.5 mg IVP Q5M PRN PRN Reason: Pain, severe (8-10) Last Admin: 09/22/17 16:02 Dose: 0.5 mg Metronidazole (Flagyl) 500 mg in 100 mls @ 100 mls/hr IVPB Q8H [facility] PRN Reason: Protocol Last Admin: 09/23/17 07:08 Dose: 100 mls/hr Piperacillin Sod/Tazobactam (Sod 3.375 gm/ Sodium Chloride) 100 mls @ 200 mls/ hr IVPB Q6H [facility] PRN Reason: Protocol Last Admin: 09/23/17 06:14 Dose: 200 mls/hr Lactated Ringer's (Lactated Ringer's) 1,000 mls @ 125 mls/hr IV .Q8H [facility] Last Admin: 09/23/17 07:42 Dose: Not Given Morphine Sulfate (Morphine) 4 mg IVP Q4 PRN PRN Reason: Pain, moderate (4-7) Last Admin: 09/23/17 05:28 Dose: 4 mg Ondansetron HCl (Zofran Inj) 4 mg IVP Q6H PRN PRN Reason: nausea/vomit - Labs Labs: 09/22/17 12:06 09/22/17 12:06 PT 14.1 SECONDS (9.7-12.2) H 09/22/17 06:28 INR 1.3 09/22/17 06:28 APTT 24 SECONDS (21-34) 09/22/17 06:28 - Constitutional Appears: Well, Non-toxic, No Acute Distress - Head Exam Head Exam: ATRAUMATIC, NORMAL INSPECTION, NORMOCEPHALIC - Eye Exam Eye Exam: EOMI, Normal appearance - Respiratory Exam Respiratory Exam: Clear to Ausculation Bilateral, NORMAL BREATHING PATTERN - Cardiovascular Exam Cardiovascular Exam: REGULAR RHYTHM, +S1, +S2. absent: Murmur - GI/Abdominal Exam GI & Abdominal Exam: Soft, Tenderness, Normal Bowel Sounds. absent: Distended, Firm, Guarding, Rigid Additional comments: SUSY drain in place, dressings c/d/i - Rectal Exam Rectal Exam: Deferred - Neurological Exam Neurological Exam: Alert, Awake, Oriented x3 - Psychiatric Exam Psychiatric exam: Normal Affect, Normal Mood - Skin Skin Exam: Dry, Intact, Normal Color, Warm Assessment and Plan - Assessment and Plan (Free Text) Assessment: 62F s/p laparascopic appendectomy w/ partial cecectomy POD1 Plan: NGT in place - 50cc output, removed today SUSY drain in place - 40cc serosanguinous output c/w pain management c/w IVF c/w IV Abx NPO w/ ice chips monitor bowel function further recs per Dr. Any Saleh PGY1
--- NOTE | 2017-09-23 09:46 | CP.PCM.HP ---
History of Present Illness - History of Present Illness History of Present Illness: CC: Right lower qaudrant pain HPI: 62F, w/PMH of hypothyroidism,HTN, Hyperlipidemia presented to ED for sharp , nonradiating, constant, RLQ abdominal pain refractory to antacids. Pt has had similar pain the past, but usually resolved with antacids. Eating exacerbated her symptoms. No medications helped with the pain. Admits to fevers, nausea, and diarrhea. Denies chills, vomiting, SOB, or CP. CT shows acute appendicitis with air fluid levels possible small bowel ileus.Pt has stiill diffuse abdominal pain more pronounced on right lower qaudrant she cant take deep breath. PMH: see above PSH: none ALL: none Soc: denies t/a/d Present on Admission - Present on Admission Any Indicators Present on Admission: Yes Review of Systems - Review of Systems Systems not reviewed;Unavailable: Acuity of Condition - Constitutional Constitutional: Anorexia, Fatigue, Lethargy, Malaise - EENT Eyes: absent: As Per HPI, Blind Spots, Blurred Vision, Change in Vision, Decreased Night Vision, Diplopia, Discharge, Dry Eye, Exophthalmos, Floaters, Irritation, Itchy Eyes, Loss of Peripheral Vision, Pain, Photophobia, Requires Corrective Lenses, Sees Flashes, Spots in Vision, Tunnel Vision, Other Visual Disturbances, Loss of Vision, Other Nose/Mouth/Throat: absent: As Per HPI, Epistaxis, Nasal Congestion, Nasal Discharge, Nasal Obstruction, Nasal Trauma, Nose Pain, Post Nasal Drip, Sinus Pain, Sinus Pressure, Bleeding Gums, Change in Voice, Dental Pain, Dry Mouth, Dysphagia, Halitosis, Hoarsness, Lip Swelling, Mouth Lesions, Mouth Pain, Odynophagia, Sore Throat, Throat Swelling, Tongue Swelling, Facial Pain, Neck Pain, Neck Mass, Other - Breasts Breasts: absent: As Per HPI, Change in Shape, Mass, Pain, Nipple Discharge, Nipple Inversion, Skin Changes, Swelling, Other - Cardiovascular Cardiovascular: absent: As Per HPI, Acrocyanosis, Chest Pain, Chest Pain at Rest , Chest Pain with Activity, Claudication, Diaphoresis, Dyspnea, Dyspnea on Exertion, Edema, Irregular Heart Rhythm, Pain Radiating to Arm/Neck/Jaw, Leg Edema, Leg Ulcers, Lightheadedness, Orthopnea, Palpitations, Paroxysmal Nocturnal Dyspnea, Pedal Edema, Radiating Pain, Rapid Heart Rate, Slow Heart Rate, Syncope, Other - Respiratory Respiratory: absent: As Per HPI, Cough, Dyspnea, Hemoptysis, Dyspnea on Exertion , Wheezing, Snoring, Stridor, Pain on Inspiration, Chest Congestion, Excessive Mucous Production, Change in Mucous Color, Pain with Coughing, Other - Gastrointestinal Gastrointestinal: Abdominal Pain, Nausea - Genitourinary Genitourinary: absent: As Per HPI, Change in Urinary Stream, Difficulty Urinating, Dysuria, Flank Pain, Hematuria, Pyuria, Nocturia, Urinary Incontinence, Urinary Frequency, Urinary Hesitance, Urinary Urgency, Voiding Freq/Small Amts, Freq UTI, Hx Renal/Bladder Calculi, Hx /Renal Surgery, Bladder Distension, Other - Reproductive: Female Reproductive:Female: absent: As Per HPI, Amenorrhea, Amenorrhea/ Control, Currently Menstual, Cycle <21 Days, Cycle >35 Days, Cycle Variable, Menses 1-7 Days, Menses >/= 8 Days, Menses Variable, Cycle > 4 Weeks Between, No Menses for 6 Months, Heavy Menses, Light Menses, Normal Menses, Spotting Between Cycles , S/P Hysterectomy, Menopausal, Post Menopausal, Premenarche, Abnormal Vaginal Bleeding, Dysmenorrhea, Dyspareunia, Genital Lesions, Genital Pruritis, Pelvic Pain, Prolapse Symptoms, Sexual Dysfunction, Vaginal Discharge, Vaginal Dryness , Vaginal Odor, Vaginal Pruritis, Other - Menstruation Menstruation: absent: As Per HPI, Amenorrhea, Amenorrhea/ Control, Currently Menstual, Cycle <21 Days, Cycle >35 Days, Cycle Variable, Menses 1-7 Days, Menses >/= 8 Days, Menses Variable, Cycle > 4 Weeks Between, No Menses for 6 Months, Heavy Menses, Light Menses, Normal Menses, Spotting Between Cycles , S/P Hysterectomy, Menopausal, Post Menopausal, Premenarche, Abnormal Vaginal Bleeding, Dysmenorrhea, Other - Musculoskeletal Musculoskeletal: absent: As Per HPI, Abnormal Gait, Arthralgias, Atrophy, Back Pain, Deformity, Joint Swelling, Limited Range of Motion, Loss of Height, Muscle Cramps, Muscle Weakness, Myalgias, Neck Pain, Numbness, Radiating Pain into Limb, Stiffness, Tingling, Other - Integumentary Integumentary: absent: As Per HPI, Acne, Alopecia, Bleeding Lesions, Change in Hair, Change in Nails, Change in Pigmentation, Changing Lesions, Dry Skin, Erythema, Furuncle, Hirsutism, Lesions, New Lesions, Non-Healing Lesions, Photosensitivity, Pruritus, Rash, Skin Pain, Skin Ulcer, Sores, Striae, Swelling , Unusual Bruising, Wounds, Jaundice, Other - Neurological Neurological: absent: As Per HPI, Abnormal Gait, Abnormal Hearing, Abnormal Movements, Abnormal Speech, Behavioral Changes, Burning Sensations, Confusion, Convulsions, Disequilibrium, Dizziness, Numbness, Focal Weakness, Frequent Falls , Headaches, Lack of Coordination, Loss of Vision, Memory Loss, Paresthesias, Radicular Pain, Restless Legs, Sensory Deficit, Syncope, Tingling, Tremor, Vertigo, Weakness, Other Visual Disturbances, Other Past Patient History - Infectious Disease Hx of Infectious Diseases: None - Past Medical History & Family History Past Medical History?: Yes - Past Social History Smoking Status: Never Smoked - CARDIAC Hx Hypertension: No - PULMONARY Hx Respiratory Disorders: No - NEUROLOGICAL Hx Neurological Disorder: No - HEENT Hx HEENT Problems: No - RENAL Hx Chronic Kidney Disease: No - ENDOCRINE/METABOLIC Hx Endocrine Disorders: Yes Hx Hypothyroidism: Yes - HEMATOLOGICAL/ONCOLOGICAL Hx Blood Disorders: No - INTEGUMENTARY Hx Dermatological Problems: No - MUSCULOSKELETAL/RHEUMATOLOGICAL Hx Musculoskeletal Disorders: No Hx Falls: No - GASTROINTESTINAL Hx Gastrointestinal Disorders: No - GENITOURINARY/GYNECOLOGICAL Hx Genitourinary Disorders: Yes Hx Urinary Tract Infection: Yes - PSYCHIATRIC Hx Psychophysiologic Disorder: No Hx Substance Use: No - SURGICAL HISTORY Hx Surgeries: Yes Hx Section: Yes (x1) - ANESTHESIA Hx Anesthesia: Yes Hx Anesthesia Reactions: No Hx Malignant Hyperthermia: No Meds Allergies/Adverse Reactions: Allergies Allergy/AdvReac Type Severity Reaction Status Date / Time No Known Allergies Allergy Verified 05/12/16 09:38 Physical Exam - Constitutional Appears: No Acute Distress - Head Exam Head Exam: ATRAUMATIC, NORMAL INSPECTION, NORMOCEPHALIC - Eye Exam Eye Exam: EOMI, Normal appearance, PERRL Pupil Exam: NORMAL ACCOMODATION, PERRL - ENT Exam ENT Exam: Mucous Membranes Moist, Normal Exam - Respiratory Exam Respiratory Exam: Clear to Auscultation Bilateral, NORMAL BREATHING PATTERN - Cardiovascular Exam Cardiovascular Exam: REGULAR RHYTHM - GI/Abdominal Exam GI & Abdominal Exam: Hypoactive Bowel Sounds, Rebound - Rectal Exam Rectal Exam: Deferred - Back Exam Back exam: paraspinal tenderness - Neurological Exam Neurological exam: Alert, CN II-XII Intact, Normal Gait, Oriented x3, Reflexes Normal Results - Vital Signs Recent Vital Signs: Last Vital Signs Temp 98.3 F 09/23/17 07:40 Pulse 84 09/23/17 07:40 Resp 20 09/23/17 07:40 BP 136/80 09/23/17 07:40 Pulse Ox 96 09/23/17 07:40 - Labs Result Diagrams: 09/22/17 12:06 09/22/17 12:06 Labs: Laboratory Results - last 24 hr 09/22/17 09/22/17 09/22/17 06:28 12:06 12:06 WBC 12.0 H RBC 3.76 L Hgb 11.6 Hct 33.9 L MCV 90.2 MCH 30.8 MCHC 34.2 RDW 13.9 Plt Count 198 MPV 8.8 Sodium 143 Potassium 3.9 Chloride 105 Carbon Dioxide 27 Anion Gap 15 BUN 8 Creatinine 0.9 Est GFR ( Amer) > 60 Est GFR (Non-Af Amer) > 60 Random Glucose 106 H Calcium 8.5 L Antibody Screen Negative Assessment & Plan (1) Right lower quadrant abdominal pain Status: Acute (2) Abdominal pain Status: Acute (3) Acute appendicitis Status: Acute (4) Dehydration Status: Acute
[2017-09-23] MEDS: Enoxaparin 40 mg Syringe SC SCH (09:58)
[2017-09-23 11:30] LABS: HEMOGLOBIN 10.3 g/dL (11.0-16.0); MEAN CELL VOLUME 90.6 fL (81.0-99.0); MEAN CORPUSCULAR HEMOGLOBIN 31.3 pg (27.0-31.0); MEAN CORPUSCULAR HGB CONC 34.5 g/dL (33.0-37.0); MEAN PLATELET VOLUME 9.3 fL (7.2-11.7); RBC 3.3 Mil/uL (3.80-5.20); RED CELL DISTRIBUTION WIDTH 14.1 % (11.5-14.5); WHITE BLOOD COUNT 13.1 K/uL (4.8-10.8)
[2017-09-23 11:47] LABS: BLOOD UREA NITROGEN 13 mg/dL (7-17); CALCIUM 8.4 mg/dl (8.6-10.4); GFR AFRICAN-AMERICAN > 60; GFR NON-AFRICAN AMERICAN > 60
[2017-09-23] MEDS: Potassium Ch 20mEq in D5W 1,000 ML IV SCH ×2 (13:12→18:13)
[2017-09-23] MEDS ORDERED: Aluminum Hydroxide/Magnesium Hydroxide Susp (30 mL) PO PRN (19:38)
[2017-09-24] MEDS: Piperacillin/Tazobact 3.375 GM in Sodium Chloride 100 ML IVPB SCH ×5 (01:00→23:53)
[2017-09-24] MEDS: Morphine 4 MG/ML VIAL IVP PRN (01:25)
[2017-09-24] MEDS: Potassium Ch 20mEq in D5W 1,000 ML IV SCH ×2 (03:00→10:44)
[2017-09-24] MEDS: Levothyroxine 50 MCG TAB PO SCH (05:35)
[2017-09-24] MEDS: metroNIDAZOLE IV 500 mg/100 ml 500 MG/100 ML BAG IVPB SCH ×3 (06:30→23:51)
--- NOTE | 2017-09-24 07:21 | CP.PCM.PN ---
Subjective - Date & Time of Evaluation Date of Evaluation: 09/24/17 Time of Evaluation: 07:18 - Subjective Subjective: General Surgery Progress Note for Dr. Agarwal 62F seen and evaluated at bedside this morning. NGT removed yesterday. Pt tolerated liquid diet. Pt c/o pain near incision sites otherwise well controlled. Admits to BM and passing flatus. No acute events overnight. Denies f /c and n/v/d. Objective - Vital Signs/Intake and Output Vital Signs (last 24 hours): Temp Pulse Resp BP Pulse Ox 98.9 F 69 20 152/85 H 98 09/23/17 23:28 09/23/17 23:28 09/23/17 23:28 09/23/17 23:28 09/23/17 23:28 Intake and Output: 09/24/17 09/24/17 06:59 18:59 Intake Total 1240 Output Total 70 Balance 1170 - Medications Medications: Current Medications Acetaminophen (Tylenol 325mg Tab) 650 mg PO Q6 PRN PRN Reason: Fever >100.4 F Al Hydrox/Mg Hydrox/Simethicone (Maalox 30 Ml) 15 ml PO Q4 PRN PRN Reason: Indigestion / Heartburn Last Admin: 09/23/17 19:56 Dose: 15 ml Enoxaparin Sodium (Lovenox) 40 mg SC DAILY [facility] Last Admin: 09/23/17 09:58 Dose: Not Given Hydromorphone HCl (Dilaudid) 0.5 mg IVP Q5M PRN PRN Reason: Pain, severe (8-10) Last Admin: 09/22/17 16:02 Dose: 0.5 mg Metronidazole (Flagyl) 500 mg in 100 mls @ 100 mls/hr IVPB Q8H [facility] PRN Reason: Protocol Last Admin: 09/24/17 06:30 Dose: 100 mls/hr Piperacillin Sod/Tazobactam (Sod 3.375 gm/ Sodium Chloride) 100 mls @ 200 mls/ hr IVPB Q6H [facility] PRN Reason: Protocol Last Admin: 09/24/17 05:30 Dose: 200 mls/hr Potassium Chloride/Dextrose (Potassium Chl 20 Meq In D5w) 1,000 mls @ 125 mls/ hr IV .Q8H [facility] Last Admin: 09/24/17 03:00 Dose: Not Given Levothyroxine Sodium (Synthroid) 50 mcg PO DAILY@0630 [facility] Last Admin: 09/24/17 05:35 Dose: 50 mcg Morphine Sulfate (Morphine) 4 mg IVP Q4 PRN PRN Reason: Pain, moderate (4-7) Last Admin: 09/24/17 01:25 Dose: 4 mg Ondansetron HCl (Zofran Inj) 4 mg IVP Q6H PRN PRN Reason: nausea/vomit Pneumococcal Polyvalent Vaccine (Pneumovax 23 Vaccine) 0.5 ml IM .ONCE ONE Stop: 09/24/17 10:01 - Labs Labs: 09/23/17 11:27 09/23/17 11:27 PT 14.1 SECONDS (9.7-12.2) H 09/22/17 06:28 INR 1.3 09/22/17 06:28 APTT 24 SECONDS (21-34) 09/22/17 06:28 - Constitutional Appears: Well, Non-toxic, No Acute Distress - Head Exam Head Exam: ATRAUMATIC, NORMAL INSPECTION, NORMOCEPHALIC - Eye Exam Eye Exam: EOMI, Normal appearance - ENT Exam ENT Exam: Mucous Membranes Moist, Normal Exam - Respiratory Exam Respiratory Exam: Clear to Ausculation Bilateral, NORMAL BREATHING PATTERN. absent: Respiratory Distress - Cardiovascular Exam Cardiovascular Exam: REGULAR RHYTHM, +S1, +S2. absent: Murmur - GI/Abdominal Exam GI & Abdominal Exam: Soft, Tenderness, Normal Bowel Sounds Additional comments: dressings c/d/i 70cc serosanguinous output from shreya drain - Neurological Exam Neurological Exam: Alert, Awake, Oriented x3 - Psychiatric Exam Psychiatric exam: Normal Affect, Normal Mood - Skin Skin Exam: Dry, Intact, Normal Color, Warm Assessment and Plan - Assessment and Plan (Free Text) Assessment: 62F s/p laparascopic appendectomy w/ partial cecectomy POD2 Plan: NGT removed Shreya drain in place - 70cc serosanguinous output c/w pain management c/w IVF c/w IV Abx FLD, advance as tolerated further recs per Dr. Any Saleh PGY1
[2017-09-24 07:32] LABS: HEMOGLOBIN 11.3 g/dL (11.0-16.0); MEAN CELL VOLUME 90.6 fL (81.0-99.0); MEAN CORPUSCULAR HEMOGLOBIN 30.4 pg (27.0-31.0); MEAN CORPUSCULAR HGB CONC 33.6 g/dL (33.0-37.0); MEAN PLATELET VOLUME 9.7 fL (7.2-11.7); RBC 3.71 Mil/uL (3.80-5.20); RED CELL DISTRIBUTION WIDTH 14.1 % (11.5-14.5); WHITE BLOOD COUNT 16.8 K/uL (4.8-10.8)
[2017-09-24 08:55] LABS: BLOOD UREA NITROGEN 11 mg/dL (7-17); CALCIUM 8.7 mg/dl (8.6-10.4); GFR AFRICAN-AMERICAN > 60; GFR NON-AFRICAN AMERICAN > 60
[2017-09-24] MEDS: Enoxaparin 40 mg Syringe SC SCH (09:36)
[2017-09-24] MEDS ORDERED: Pneumococcal 23-Valent Vaccine IM ONE (10:00)
[2017-09-24] MEDS ORDERED: Potassium Chloride 20 mEq/15 ml LIQ UD PO STA (12:35)
[2017-09-24] MEDS ORDERED: Potassium Chloride 20 mEq ER Tab PO ONE (13:30)
--- NOTE | 2017-09-24 22:29 | CP.PCM.PN ---
Subjective - Date & Time of Evaluation Date of Evaluation: 09/23/17 Time of Evaluation: 18:00 - Subjective Subjective: 62F seen and evaluated at bedside this morning. NGT still in place. Pt c/o pain near incision sites. Denies BM or passing flatus. No acute events overnight. Denies f/c and n/v/d. Objective - Vital Signs/Intake and Output Vital Signs (last 24 hours): Temp Pulse Resp BP Pulse Ox 99.3 F 74 20 144/87 97 09/24/17 16:00 09/24/17 16:00 09/24/17 16:00 09/24/17 16:00 09/24/17 18:17 Intake and Output: 09/24/17 09/25/17 18:59 06:59 Intake Total 875 Output Total 30 Balance 845 - Medications Medications: Current Medications Acetaminophen (Tylenol 325mg Tab) 650 mg PO Q6 PRN PRN Reason: Fever >100.4 F Al Hydrox/Mg Hydrox/Simethicone (Maalox 30 Ml) 15 ml PO Q4 PRN PRN Reason: Indigestion / Heartburn Last Admin: 09/23/17 19:56 Dose: 15 ml Enoxaparin Sodium (Lovenox) 40 mg SC DAILY [facility] Last Admin: 09/24/17 09:36 Dose: Not Given Hydromorphone HCl (Dilaudid) 0.5 mg IVP Q5M PRN PRN Reason: Pain, severe (8-10) Last Admin: 09/22/17 16:02 Dose: 0.5 mg Metronidazole (Flagyl) 500 mg in 100 mls @ 100 mls/hr IVPB Q8H [facility] PRN Reason: Protocol Last Admin: 09/24/17 14:42 Dose: 100 mls/hr Piperacillin Sod/Tazobactam (Sod 3.375 gm/ Sodium Chloride) 100 mls @ 200 mls/ hr IVPB Q6H [facility] PRN Reason: Protocol Last Admin: 09/24/17 18:18 Dose: 200 mls/hr Levothyroxine Sodium (Synthroid) 50 mcg PO DAILY@0630 [facility] Last Admin: 09/24/17 05:35 Dose: 50 mcg Morphine Sulfate (Morphine) 4 mg IVP Q4 PRN PRN Reason: Pain, moderate (4-7) Last Admin: 09/24/17 01:25 Dose: 4 mg Ondansetron HCl (Zofran Inj) 4 mg IVP Q6H PRN PRN Reason: nausea/vomit Last Admin: 09/24/17 16:35 Dose: 4 mg - Labs Labs: 09/24/17 07:13 09/24/17 07:13 PT 14.1 SECONDS (9.7-12.2) H 09/22/17 06:28 INR 1.3 09/22/17 06:28 APTT 24 SECONDS (21-34) 09/22/17 06:28 Assessment and Plan (1) Right lower quadrant abdominal pain Status: Acute (2) Abdominal pain Status: Acute (3) Acute appendicitis Status: Acute (4) Dehydration Status: Acute
--- NOTE | 2017-09-24 22:30 | CP.PCM.PN ---
Subjective - Date & Time of Evaluation Date of Evaluation: 09/24/17 Time of Evaluation: 16:00 - Subjective Subjective: Pt seen and evalauted at bedside, NGT removed yesterday. Pt tolerated liquid diet. Pt c/o pain near incision sites otherwise well controlled. Admits to BM and passing flatus. No acute events overnight. Denies f/c and n/v/d. Objective - Vital Signs/Intake and Output Vital Signs (last 24 hours): Temp Pulse Resp BP Pulse Ox 99.3 F 74 20 144/87 97 09/24/17 16:00 09/24/17 16:00 09/24/17 16:00 09/24/17 16:00 09/24/17 18:17 Intake and Output: 09/24/17 09/25/17 18:59 06:59 Intake Total 875 Output Total 30 Balance 845 - Medications Medications: Current Medications Acetaminophen (Tylenol 325mg Tab) 650 mg PO Q6 PRN PRN Reason: Fever >100.4 F Al Hydrox/Mg Hydrox/Simethicone (Maalox 30 Ml) 15 ml PO Q4 PRN PRN Reason: Indigestion / Heartburn Last Admin: 09/23/17 19:56 Dose: 15 ml Enoxaparin Sodium (Lovenox) 40 mg SC DAILY [facility] Last Admin: 09/24/17 09:36 Dose: Not Given Hydromorphone HCl (Dilaudid) 0.5 mg IVP Q5M PRN PRN Reason: Pain, severe (8-10) Last Admin: 09/22/17 16:02 Dose: 0.5 mg Metronidazole (Flagyl) 500 mg in 100 mls @ 100 mls/hr IVPB Q8H [facility] PRN Reason: Protocol Last Admin: 09/24/17 14:42 Dose: 100 mls/hr Piperacillin Sod/Tazobactam (Sod 3.375 gm/ Sodium Chloride) 100 mls @ 200 mls/ hr IVPB Q6H [facility] PRN Reason: Protocol Last Admin: 09/24/17 18:18 Dose: 200 mls/hr Levothyroxine Sodium (Synthroid) 50 mcg PO DAILY@0630 [facility] Last Admin: 09/24/17 05:35 Dose: 50 mcg Morphine Sulfate (Morphine) 4 mg IVP Q4 PRN PRN Reason: Pain, moderate (4-7) Last Admin: 09/24/17 01:25 Dose: 4 mg Ondansetron HCl (Zofran Inj) 4 mg IVP Q6H PRN PRN Reason: nausea/vomit Last Admin: 09/24/17 16:35 Dose: 4 mg - Labs Labs: 09/24/17 07:13 09/24/17 07:13 PT 14.1 SECONDS (9.7-12.2) H 09/22/17 06:28 INR 1.3 09/22/17 06:28 APTT 24 SECONDS (21-34) 09/22/17 06:28 Assessment and Plan (1) Right lower quadrant abdominal pain Status: Acute (2) Abdominal pain Status: Acute (3) Acute appendicitis Status: Acute (4) Dehydration Status: Acute
[2017-09-25] MEDS: Piperacillin/Tazobact 3.375 GM in Sodium Chloride 100 ML IVPB SCH ×2 (05:20→11:47)
[2017-09-25] MEDS: Levothyroxine 50 MCG TAB PO SCH (05:37)
[2017-09-25] MEDS: metroNIDAZOLE IV 500 mg/100 ml 500 MG/100 ML BAG IVPB SCH ×2 (06:35→14:33)
[2017-09-25 08:01] LABS: HEMOGLOBIN 10.8 g/dL (11.0-16.0); MEAN CELL VOLUME 90.2 fL (81.0-99.0); MEAN CORPUSCULAR HGB CONC 34.4 g/dL (33.0-37.0); MEAN PLATELET VOLUME 9.3 fL (7.2-11.7); RBC 3.49 Mil/uL (3.80-5.20); RED CELL DISTRIBUTION WIDTH 14.1 % (11.5-14.5)
[2017-09-25 08:03] LABS: WHITE BLOOD COUNT 7.7 K/uL (4.8-10.8)
[2017-09-25 08:20] LABS: BLOOD UREA NITROGEN 9 mg/dL (7-17); CALCIUM 8.4 mg/dl (8.6-10.4); GFR AFRICAN-AMERICAN > 60; GFR NON-AFRICAN AMERICAN > 60
[2017-09-25] MEDS: Enoxaparin 40 mg Syringe SC SCH (09:08)
--- NOTE | 2017-09-25 12:59 | CP.PCM.PN ---
Subjective - Date & Time of Evaluation Date of Evaluation: 09/25/17 Time of Evaluation: 10:00 - Subjective Subjective: Patient seen and examined. No acute events over night. Tolerating diet. Denies chest pain/SOB. Passing flatus. Objective - Vital Signs/Intake and Output Vital Signs (last 24 hours): Temp Pulse Resp BP Pulse Ox 98.9 F 73 20 157/85 H 99 09/25/17 07:35 09/25/17 07:35 09/25/17 07:35 09/25/17 07:35 09/25/17 07:35 Intake and Output: 09/25/17 09/25/17 06:59 18:59 Intake Total 500 Output Total 10 20 Balance 490 -20 - Medications Medications: Current Medications Acetaminophen (Tylenol 325mg Tab) 650 mg PO Q6 PRN PRN Reason: Fever >100.4 F Al Hydrox/Mg Hydrox/Simethicone (Maalox 30 Ml) 15 ml PO Q4 PRN PRN Reason: Indigestion / Heartburn Last Admin: 09/23/17 19:56 Dose: 15 ml Enoxaparin Sodium (Lovenox) 40 mg SC DAILY [facility] Last Admin: 09/25/17 09:08 Dose: Not Given Hydromorphone HCl (Dilaudid) 0.5 mg IVP Q5M PRN PRN Reason: Pain, severe (8-10) Last Admin: 09/22/17 16:02 Dose: 0.5 mg Metronidazole (Flagyl) 500 mg in 100 mls @ 100 mls/hr IVPB Q8H [facility] PRN Reason: Protocol Last Admin: 09/25/17 06:35 Dose: 100 mls/hr Piperacillin Sod/Tazobactam (Sod 3.375 gm/ Sodium Chloride) 100 mls @ 200 mls/ hr IVPB Q6H [facility] PRN Reason: Protocol Last Admin: 09/25/17 11:47 Dose: 200 mls/hr Levothyroxine Sodium (Synthroid) 50 mcg PO DAILY@0630 [facility] Last Admin: 09/25/17 05:37 Dose: 50 mcg Morphine Sulfate (Morphine) 4 mg IVP Q4 PRN PRN Reason: Pain, moderate (4-7) Last Admin: 09/24/17 01:25 Dose: 4 mg Ondansetron HCl (Zofran Inj) 4 mg IVP Q6H PRN PRN Reason: nausea/vomit Last Admin: 09/24/17 16:35 Dose: 4 mg - Labs Labs: 09/25/17 07:45 09/25/17 07:45 PT 14.1 SECONDS (9.7-12.2) H 09/22/17 06:28 INR 1.3 09/22/17 06:28 APTT 24 SECONDS (21-34) 09/22/17 06:28 - Constitutional Appears: No Acute Distress - Head Exam Head Exam: NORMOCEPHALIC - Eye Exam Eye Exam: Normal appearance - Respiratory Exam Respiratory Exam: NORMAL BREATHING PATTERN - Cardiovascular Exam Cardiovascular Exam: +S1, +S2 - GI/Abdominal Exam GI & Abdominal Exam: Soft - Neurological Exam Neurological Exam: Alert, Awake, Oriented x3 - Psychiatric Exam Psychiatric exam: Normal Mood - Skin Skin Exam: Dry, Intact, Warm Assessment and Plan - Assessment and Plan (Free Text) Assessment: 62F s/p laparascopic appendectomy w/ partial cecectomy POD3 Plan: Patient clear for d/c from surgical standpoint C/w PO ABx Drain will remain until follow up in office with Dr. Agarwal 7-10 days D/w Dr. Elly Christiansen PGY2
[2017-09-25] MEDS ORDERED: Potassium Chloride 20 mEq ER Tab PO ONE (13:11)
[2017-09-25 16:46] VITALS: BP 142/93; PULSE 85; TEMP 99.2; O2SAT 98
--- NOTE | 2017-09-25 17:11 | CP.PCM.PN ---
Subjective - Date & Time of Evaluation Date of Evaluation: 09/25/17 Time of Evaluation: 17:11 - Subjective Subjective: alert, oriented, ambulatory, NAD. Objective - Vital Signs/Intake and Output Vital Signs (last 24 hours): Temp Pulse Resp BP Pulse Ox 99.2 F 85 20 142/93 H 98 09/25/17 16:00 09/25/17 16:00 09/25/17 16:00 09/25/17 16:00 09/25/17 16:00 Intake and Output: 09/25/17 09/25/17 06:59 18:59 Intake Total 500 Output Total 10 40 Balance 490 -40 - Medications Medications: Current Medications Acetaminophen (Tylenol 325mg Tab) 650 mg PO Q6 PRN PRN Reason: Fever >100.4 F Al Hydrox/Mg Hydrox/Simethicone (Maalox 30 Ml) 15 ml PO Q4 PRN PRN Reason: Indigestion / Heartburn Last Admin: 09/23/17 19:56 Dose: 15 ml Enoxaparin Sodium (Lovenox) 40 mg SC DAILY [facility] Last Admin: 09/25/17 09:08 Dose: Not Given Hydromorphone HCl (Dilaudid) 0.5 mg IVP Q5M PRN PRN Reason: Pain, severe (8-10) Last Admin: 09/22/17 16:02 Dose: 0.5 mg Piperacillin Sod/Tazobactam (Sod 3.375 gm/ Sodium Chloride) 100 mls @ 200 mls/ hr IVPB Q6H [facility] PRN Reason: Protocol Last Admin: 09/25/17 11:47 Dose: 200 mls/hr Levothyroxine Sodium (Synthroid) 50 mcg PO DAILY@0630 [facility] Last Admin: 09/25/17 05:37 Dose: 50 mcg Morphine Sulfate (Morphine) 4 mg IVP Q4 PRN PRN Reason: Pain, moderate (4-7) Last Admin: 09/24/17 01:25 Dose: 4 mg Ondansetron HCl (Zofran Inj) 4 mg IVP Q6H PRN PRN Reason: nausea/vomit Last Admin: 09/24/17 16:35 Dose: 4 mg - Labs Labs: 09/25/17 07:45 09/25/17 07:45 PT 14.1 SECONDS (9.7-12.2) H 09/22/17 06:28 INR 1.3 18 06:28 APTT 24 SECONDS (21-34) 09/22/17 06:28 Assessment and Plan - Assessment and Plan (Free Text) Assessment: Patient s/p appendectomy, seen and examine. Alert and oriented x3, no acute pain. Cleared by surgery for discharge home today with drainage tube. Discussed with DR Toney, plan to discharge home on po antibiotics. Advised to follow up with surgery in 1 week. Teaching given by the nurse for the drainage tube care.
--- NOTE | 2017-09-25 23:16 | CP.PCM.DIS ---
Provider - Provider Date of Admission: 09/22/17 06:19 Attending physician: Anmol Toney MD Time Spent in preparation of Discharge (in minutes): 45 Diagnosis - Discharge Diagnosis (1) Right lower quadrant abdominal pain Status: Acute (2) Abdominal pain Status: Acute (3) Acute appendicitis Status: Acute (4) Dehydration Status: Acute Hospital Course - Lab Results Lab Results: Most Recent Lab Values WBC 7.7 K/uL (4.8-10.8) D 09/25/17 07:45 RBC 3.49 Mil/uL (3.80-5.20) L 09/25/17 07:45 Hgb 10.8 g/dL (11.0-16.0) L 09/25/17 07:45 Hct 31.5 % (34.0-47.0) L 09/25/17 07:45 MCV 90.2 fL (81.0-99.0) 09/25/17 07:45 MCH 31.0 pg (27.0-31.0) 09/25/17 07:45 MCHC 34.4 g/dL (33.0-37.0) 09/25/17 07:45 RDW 14.1 % (11.5-14.5) 09/25/17 07:45 Plt Count 227 K/uL (130-400) 09/25/17 07:45 MPV 9.3 fL (7.2-11.7) 09/25/17 07:45 Neut % (Auto) 67.3 % (50.0-75.0) 09/22/17 02:55 Lymph % (Auto) 28.1 % (20.0-40.0) 09/22/17 02:55 Wilkinson % (Auto) 4.1 % (0.0-10.0) 09/22/17 02:55 Eos % (Auto) 0.3 % (0.0-4.0) 09/22/17 02:55 Baso % (Auto) 0.2 % (0.0-2.0) 09/22/17 02:55 Neut # (Auto) 6.1 K/uL (1.8-7.0) 09/22/17 02:55 Lymph # (Auto) 2.5 K/uL (1.0-4.3) 09/22/17 02:55 Wilkinson # (Auto) 0.4 K/uL (0.0-0.8) 09/22/17 02:55 Eos # (Auto) 0.0 K/uL (0.0-0.7) 09/22/17 02:55 Baso # (Auto) 0.0 K/uL (0.0-0.2) 09/22/17 02:55 PT 14.1 SECONDS (9.7-12.2) H 09/22/17 06:28 INR 1.3 09/22/17 06:28 APTT 24 SECONDS (21-34) 09/22/17 06:28 Sodium 140 mmol/L (132-148) 09/25/17 07:45 Potassium 3.5 mmol/L (3.6-5.2) L 09/25/17 07:45 Chloride 107 mmol/L (98-107) 09/25/17 07:45 Carbon Dioxide 24 mmol/L (22-30) 09/25/17 07:45 Anion Gap 13 (10-20) 09/25/17 07:45 BUN 9 mg/dL (7-17) 09/25/17 07:45 Creatinine 0.8 mg/dL (0.7-1.2) 09/25/17 07:45 Est GFR ( Amer) > 60 09/25/17 07:45 Est GFR (Non-Af Amer) > 60 09/25/17 07:45 Random Glucose 105 mg/dL (65-105) 09/25/17 07:45 Calcium 8.4 mg/dl (8.6-10.4) L 09/25/17 07:45 Total Bilirubin 1.1 mg/dL (0.2-1.3) 09/22/17 02:55 AST 36 U/L (14-36) D 09/22/17 02:55 ALT 28 U/L (9-52) 09/22/17 02:55 Alkaline Phosphatase 59 U/L (38-126) 09/22/17 02:55 Total Protein 7.3 g/dL (6.3-8.3) 09/22/17 02:55 Albumin 4.5 g/dL (3.5-5.0) 09/22/17 02:55 Globulin 2.8 gm/dL (2.2-3.9) 09/22/17 02:55 Albumin/Globulin Ratio 1.6 (1.0-2.1) 09/22/17 02:55 Lipase 95 U/L (23-300) 09/22/17 02:55 Urine Color Yellow (YELLOW) 09/22/17 05:17 Urine Clarity Clear (Clear) 09/22/17 05:17 Urine pH 6.0 (5.0-8.0) 09/22/17 05:17 Ur Specific [place] 1.015 (1.003-1.030) 09/22/17 05:17 Urine Protein Negative mg/dL (NEGATIVE) 09/22/17 05:17 Urine Glucose (UA) Normal mg/dL (Normal) 09/22/17 05:17 Urine Ketones Negative mg/dL (NEGATIVE) 09/22/17 05:17 Urine Blood 1+ (NEGATIVE) H 09/22/17 05:17 Urine Nitrate Negative (NEGATIVE) 09/22/17 05:17 Urine Bilirubin Negative (NEGATIVE) 09/22/17 05:17 Urine Urobilinogen Normal mg/dL (0.2-1.0) 09/22/17 05:17 Ur Leukocyte Esterase Neg Piyush/uL (Negative) 09/22/17 05:17 Urine WBC (Auto) 2 /hpf (0-5) 09/22/17 05:17 Urine RBC (Auto) 2 /hpf (0-3) 09/22/17 05:17 Ur Squamous Epith Cells 1 /hpf (0-5) 09/22/17 05:17 Blood Type B POSITIVE 09/22/17 06:28 Antibody Screen Negative 09/22/17 06:28 Discharge Exam - Head Exam Head Exam: NORMOCEPHALIC Discharge Plan - Discharge Medications Prescriptions: Levofloxacin [Levaquin] 750 mg PO DAILY #7 tablet - Follow Up Plan Condition: STABLE Disposition: HOME/ ROUTINE Instructions: Allen-Cool Drain, Appendicitis, Adult (DC), Dehydration, Adult (DC), Levofloxacin (Systemic), Acute Abdominal Pain (DC) Additional Instructions: Follow up with surgery in 7-10 days, call for an appointment Follow up with primary medical doctor in 1 week Take levaquin 750mg po daily for 7 days advil 400mg/ tylenol 650mg for pain every six hours NEEDED drainage tube remains with the patient, please teach how to empty daily Referrals: Anmol Toney MD [Staff Provider] - Nils Agarwal MD [Staff Provider] -
== END 2017-09-25 18:10 | disposition home or self-care (01) | DRG 585 ==
LOC: C.ER 01:45 → C.9E 06:19 → C.3T 07:20
PROVIDERS: ADMIT Internal Medicine; ATTEND Internal Medicine
PROC: 0DTH4ZZ Resection of Cecum, Percutaneous Endoscopic Approach (ICD-10-PCS; 2017-09-22)
PROC: 0DNW4ZZ Release Peritoneum, Percutaneous Endoscopic Approach (ICD-10-PCS; 2017-09-22)
PROC: 0W9J4ZZ Drainage of Pelvic Cavity, Percutaneous Endoscopic Approach (ICD-10-PCS; 2017-09-22)
PROC: 0DTJ4ZZ Resection of Appendix, Percutaneous Endoscopic Approach (ICD-10-PCS; principal; 2017-09-22 12:30)
DX: K35.2 Acute appendicitis with generalized peritonitis (principal); K55.049 Acute infarction of large intestine, extent unspecified; K66.0 Peritoneal adhesions (postprocedural) (postinfection); N73.6 Female pelvic peritoneal adhesions (postinfective); N99.4 Postprocedural pelvic peritoneal adhesions; E86.0 Dehydration; K52.9 Noninfective gastroenteritis and colitis, unspecified; E03.9 Hypothyroidism, unspecified; E78.5 Hyperlipidemia, unspecified; Z87.440 Personal history of urinary (tract) infections

== ENCOUNTER 2017-09-25 21:47 | Emergency (ER) | payer MEDICAID ==
[2017-09-25 21:47] VITALS: BMI 31.1
[2017-09-25 22:23] VITALS: BP 151/96; PULSE 95; RESP 18; TEMP 99.3; O2SAT 97
--- NOTE | 2017-09-25 22:48 | C.PDOC ---
History Of Present Illness 62 year old female presents to the ED for evaluation of her Allen Castellanos drain leaking. Patient was an appendectomy this past Saturday. Patient was discharged today with a Allen Castellanos drain in place. Patient noticed her drain started leaking and she developed some suprapubic discomfort as well. Patient denies fever, chills, nausea, vomit, diarrhea, dysuria, hemturia, back pain. Time Seen by Provider: 09/25/17 22:28 Chief Complaint (Nursing): Wound Check History Per: Patient History/Exam Limitations: no limitations Onset/Duration Of Symptoms: Hrs Current Symptoms Are (Timing): Still Present Location Of Injury: Right: Abdomen (allen castellanos drain) Quality Of Symptoms: Draining Additional History Per: Patient Past Medical History Reviewed: Historical Data, Nursing Documentation, Vital Signs Vital Signs: Last Vital Signs Temp 99.3 F 09/25/17 22:19 Pulse 95 H 09/25/17 22:19 Resp 18 09/25/17 22:19 BP 151/96 H 09/25/17 22:19 Pulse Ox 97 09/25/17 22:51 - Medical History PMH: HTN, Hypothyroidism Denies: Chronic Kidney Disease Surgical History: Appendectomy, - [facility] Procedures INJECT/INFUSE NEC (03/21/14) Family History: States: Unknown Family Hx - Social History Hx Alcohol Use: No Hx Substance Use: No - Immunization History Hx Tetanus Toxoid Vaccination: No Hx Influenza Vaccination: No Hx Pneumococcal Vaccination: No Review Of Systems Constitutional: Negative for: Fever, Chills Cardiovascular: Negative for: Chest Pain, Palpitations Respiratory: Negative for: Cough, Shortness of Breath Gastrointestinal: Positive for: Abdominal Pain. Negative for: Nausea, Vomiting Genitourinary: Negative for: Dysuria, Hematuria Neurological: Negative for: Weakness, Numbness Physical Exam - Physical Exam Appears: Non-toxic, No Acute Distress Skin: Normal Color, Warm, Dry Head: Atraumatic, Normacephalic Eye(s): bilateral: Normal Inspection Oral Mucosa: Moist Neck: Normal ROM, Supple Chest: Symmetrical Cardiovascular: Rhythm Regular Respiratory: Normal Breath Sounds, No Rales, No Rhonchi, No Wheezing Gastrointestinal/Abdominal: Soft, No Tenderness, No Guarding, No Rebound, Other (allen castellanos drain in place, small amount of bloody discharge around the insertion site, no active bleeding or drainage observed.) Extremity: Normal ROM, No Tenderness, No Swelling Neurological/Psych: Oriented x3, Normal Speech Gait: Steady ED Course And Treatment O2 Sat by Pulse Oximetry: 97 (ON RA) Pulse Ox Interpretation: Normal Progress Note: Patient was seen by the surgery resident and the dressing changed. Reevaluation Time: 23:10 Reassessment Condition: Improved Disposition - Disposition Disposition: HOME/ ROUTINE Disposition Time: 23:10 Condition: STABLE Instructions: Allen-Castellanos Drain Forms: Waddle (Romansh) - Clinical Impression Clinical Impression: Change of dressing, Encounter for postoperative wound check - Scribe Statement The provider has reviewed the documentation as recorded by the Scribe Krishan Adames All medical record entries made by the Scribe were at my direction and personally dictated by me. I have reviewed the chart and agree that the record accurately reflects my personal performance of the history, physical exam, medical decision making, and the department course for this patient. I have also personally directed, reviewed, and agree with the discharge instructions and disposition.
== END 2017-09-25 23:17 | disposition home or self-care (01) ==
LOC: C.ER 21:47
DX: Z48.01 Encounter for change or removal of surgical wound dressing (principal)

== ENCOUNTER 2018-03-16 12:31 | Emergency (ER) | payer MEDICAID ==
[2018-03-16 12:31] VITALS: BMI 33.8
[2018-03-16 13:51] VITALS: O2SAT 98
[2018-03-16] MEDS ORDERED: Albuterol-Ipratrop 3 mg / 0.5 (3 ml) UD INH STA ×2 (13:58→15:05)
--- NOTE | 2018-03-16 14:11 | C.PDOC ---
History Of Present Illness 63 year old female presents to the emergency department with complaints of flu- like symptoms, generalized weakness, cough, congestion, abdominal pain, nausea, and decreased appetite for the past month. Patient states that 2 weeks ago, the symptoms began worse, which prompted her to call her doctor yesterday. Patient's doctor gave her Keflex for "the flu" which she took yesterday but started having diarrhea today. Patient denies vomiting, chest pain, and shortness of breath. Time Seen by Provider: 03/16/18 13:35 Chief Complaint (Nursing): Abdominal Pain History Per: Patient History/Exam Limitations: no limitations Onset/Duration Of Symptoms: Worse Since (2 weeks ago), Other (one month) Current Symptoms Are (Timing): Worse Location Of Pain/Discomfort: Other (abdomen) Quality Of Discomfort: "Pain" Associated Symptoms: Nausea, Diarrhea, Loss Of Appetite, Other (cough, congestion, abdominal pain. NO shortness of breath. ). denies: Vomiting, Chest Pain Past Medical History Reviewed: Historical Data, Nursing Documentation, Vital Signs Vital Signs: Last Vital Signs Temp 98.9 F 03/16/18 12:57 Pulse 78 03/16/18 12:57 Resp 16 03/16/18 13:44 BP 112/73 03/16/18 12:57 Pulse Ox 98 03/16/18 13:44 - Medical History PMH: HTN, Hypercholesterolemia, Hypothyroidism Denies: Chronic Kidney Disease Surgical History: Appendectomy, - [facility] Procedures DRAINAGE OF PELVIC CAVITY, PERCUTANEOUS ENDOSCOPIC APPROACH (09/22/17) INJECT/INFUSE NEC (03/21/14) RELEASE PERITONEUM, PERCUTANEOUS ENDOSCOPIC APPROACH (09/22/17) RESECTION OF APPENDIX, PERCUTANEOUS ENDOSCOPIC APPROACH (09/22/17) RESECTION OF CECUM, PERCUTANEOUS ENDOSCOPIC APPROACH (09/22/17) Family History: States: No Known Family Hx - Social History Hx Tobacco Use: No Hx Alcohol Use: No Hx Substance Use: No - Immunization History Hx Tetanus Toxoid Vaccination: No Hx Influenza Vaccination: No Hx Pneumococcal Vaccination: No Review Of Systems Constitutional: Positive for: Weakness ENT: Positive for: Nose Congestion Cardiovascular: Negative for: Chest Pain Respiratory: Positive for: Cough. Negative for: Shortness of Breath Gastrointestinal: Positive for: Nausea, Abdominal Pain, Diarrhea. Negative for: Vomiting Physical Exam - Physical Exam Appears: Non-toxic Skin: Warm, Dry Head: Atraumatic, Normacephalic Eye(s): bilateral: Normal Inspection, PERRL, EOMI Nose: Normal Oral Mucosa: Moist Throat: Normal, No Erythema Neck: Normal, Supple Chest: Symmetrical, No Tenderness Cardiovascular: Rhythm Regular, No Murmur Respiratory: No Normal Breath Sounds (coarse breath sounds), No Rales, No Rhonchi, Wheezing (expiratory wheeze) Gastrointestinal/Abdominal: Soft, No Tenderness, No Guarding, No Rebound Extremity: Normal ROM Neurological/Psych: Oriented x3, Normal Speech, Normal Cognition ED Course And Treatment - Laboratory Results Result Diagrams: 03/16/18 14:15 03/16/18 14:15 O2 Sat by Pulse Oximetry: 98 (RA) Pulse Ox Interpretation: Normal Medical Decision Making Medical Decision Making: Plan: CMP Lipase CBC CXR Albuterol 3ml INH x2 Toradol 60mg IM Urinalysis Patient re-evaluated after treatment and reports feeling much better, getting up out of her stretcher and walking around, states that she is ready to go home. Advised continuing abx that she was prescribed yesterday. Rx written for albuterol inhaler. Follow up with PMD. Return to the ED for any new or worsening symptoms. Disposition - Disposition Disposition: HOME/ ROUTINE Disposition Time: 16:15 Condition: STABLE Additional Instructions: YAMILET RIZO, thank you for letting us take care of you today. Your provider was Ethel Liao MD and you were treated for ABD PAIN/DIARRHEA. The emergency medical care you received today was directed at your acute symptoms. If you were prescribed any medication, please fill it and take as directed. It may take several days for your symptoms to resolve. Return to the Emergency Department if your symptoms worsen, do not improve, or if you have any other problems. Please contact your doctor or call one of the physicians/clinics you have been referred to that are listed on the Patient Visit Information form that is included in your discharge packet. Bring any paperwork you were given at discharge with you along with any medications you are taking to your follow up visit. Our treatment cannot replace ongoing medical care by a primary care provider outside of the emergency department. Thank you for allowing the [facility] team to be part of your care today. If you had an X-Ray or CT scan: A Radiologist will review the ED reading if any change in treatment is needed we will contact you. If you had a blood, urine, or wound culture: It will take several days for the results, if any change in treatment is needed we will contact you. If you had an STI test: It will take 48 hours for the results. Please call after 1 week if you have not heard back. Prescriptions: Albuterol Sulfate [Ventolin Hfa] 2 puff IH Q4H #1 inh Instructions: Acute Bronchitis, Adult (DC) Forms: Gen Discharge Inst Nepali, [employer] (Nepali) Print Language: BURMESE - Clinical Impression Clinical Impression: Abdominal pain, Respiratory tract congestion with cough, Generalized weakness - Scribe Statement The provider has reviewed the documentation as recorded by the Scribe (Zachary El) Provider Attestation: All medical record entries made by the Scribe were at my direction and personally dictated by me. I have reviewed the chart and agree that the record accurately reflects my personal performance of the history, physical exam, medical decision making, and the department course for this patient. I have also personally directed, reviewed, and agree with the discharge instructions and disposition.
[2018-03-16] MEDS ORDERED: Albuterol-Ipratrop 3 mg / 0.5 (3 ml) UD ONE ×2 (14:12→15:08)
[2018-03-16 14:21] LABS: BASO % 0.4 % (0.0-2.0); EOS % 0.7 % (0.0-4.0); HEMOGLOBIN 13.1 g/dL (11.0-16.0); LYMPH # 2.4 K/uL (1.0-4.3); LYMPH % 66.1 % (20.0-40.0); MEAN CELL VOLUME 91.9 fL (81.0-99.0); MEAN CORPUSCULAR HEMOGLOBIN 31.3 pg (27.0-31.0); MEAN CORPUSCULAR HGB CONC 34.1 g/dL (33.0-37.0); MEAN PLATELET VOLUME 9.2 fL (7.2-11.7); MONO # 0.5 K/uL (0.0-0.8); MONO % 12.7 % (0.0-10.0); NEUT # 0.7 K/uL (1.8-7.0); NEUT % 20.1 % (50.0-75.0); NRBC % 0.1 % (0.0-2.0); RBC 4.18 Mil/uL (3.80-5.20); RED CELL DISTRIBUTION WIDTH 13.6 % (11.5-14.5); WHITE BLOOD COUNT 3.7 K/uL (4.8-10.8)
[2018-03-16 14:35] LABS: ALBUMIN 4.4 g/dL (3.5-5.0); BLOOD UREA NITROGEN 9 mg/dL (7-17); CALCIUM 9.1 mg/dl (8.6-10.4); GFR NON-AFRICAN AMERICAN > 60
[2018-03-16 14:36] LABS: ALB/GLOB RATIO 1.4 (1.0-2.1); ALT/SGPT 44 U/L (9-52); AST/SGOT 40 U/L (14-36); LIPASE 171 U/L (23-300)
[2018-03-16 14:42] LABS: SQUAMOUS EPITHIAL 1 /hpf (0-5); URINE BILIRUBIN NEGATIVE (NEGATIVE); URINE BLOOD 1+ (NEGATIVE); URINE CLARITY Clear (Clear); URINE COLOR Yellow (YELLOW); URINE GLUCOSE (UA) NORMAL (Normal); URINE LEUKOCYTE ESTERASE NEG Leu/uL (Negative); URINE PROTEIN NEGATIVE (NEGATIVE); URINE UROBILINOGEN NORMAL mg/dL (0.2-1.0)
--- NOTE | 2018-03-16 14:45 | RAD ---
HISTORY: cough COMPARISON: Chest x-ray 11/28/17 TECHNIQUE: Chest, one view. FINDINGS: LUNGS: Hypoinflation. No focal consolidation. Please note that chest x-ray has limited sensitivity for the detection of pulmonary masses. PLEURA: No significant pleural effusion identified. No definite pneumothorax . CARDIOVASCULAR: Heart size appears within normal limits. Ectatic aorta. Faint calcifications OSSEOUS STRUCTURES: Degenerative changes. VISUALIZED UPPER ABDOMEN: Unremarkable. OTHER FINDINGS: None. IMPRESSION: No focal consolidation. Hypoinflation.
[2018-03-16 15:50] VITALS: BP 105/63; PULSE 77; RESP 18; TEMP 98
== END 2018-03-16 16:26 | disposition home or self-care (01) ==
LOC: C.ER 12:31
DX: R53.1 Weakness (principal); R10.9 Unspecified abdominal pain; R05 Cough; R09.89 Other specified symptoms and signs involving the circulatory and respiratory systems; E03.9 Hypothyroidism, unspecified; E78.00 Pure hypercholesterolemia, unspecified; I10 Essential (primary) hypertension
CPT/HCPCS: 71045; 80053; 81001; 83690; 85025; 94640; 96372; 99285; J1885

== ENCOUNTER 2018-04-30 09:45 | Emergency (ER) | payer MEDICAID ==
[2018-04-30 09:54] VITALS: BMI 34.4
[2018-04-30 09:57] VITALS: RESP 18
[2018-04-30] MEDS ORDERED: Sodium Chloride 0.9% 1,000 ML IV ONE (10:12)
--- NOTE | 2018-04-30 10:27 | C.PDOC ---
History Of Present Illness This is a 63 year old female with PMHx of hypertension, hyperlipidemia, hypothyroidism, and diverticulosis (noted on previous CT scan) who presents for abdominal discomfort for 2 weeks. Patient reports the pain is mostly epigastric in nature, associated with gassiness, bloated, and constipation. Denied any associated fever, chills, diarrhea or pain. She admits to having small bowel movements, feeling like she is not able to completely evacuate her bowels. She is able to pass flatus. Patient does not report taking any NSAIDs. She has taken Zantac with no relief. Last colonoscopy was 9 years ago, normal. She is set up to have a colonoscopy next month. <Liliam Oakes - Last Filed: 04/30/18 13:36> History Per: Patient History/Exam Limitations: no limitations Onset/Duration Of Symptoms: Days, Gradual Current Symptoms Are (Timing): Still Present Context: Food, Other Severity: Moderate Pain Scale Rating Of: 4 Location Of Pain/Discomfort: Epigastric Quality Of Discomfort: Dull, Gas Associated Symptoms: Constipation. denies: Fever, Chills, Nausea, Vomiting Last Bowel Movement: Yesterday <Liliam Oakes - Last Filed: 04/30/18 13:36> <Gopal Fink DO - Last Filed: 04/30/18 18:36> Time Seen by Provider: 04/30/18 09:58 Chief Complaint (Nursing): Abdominal Pain Past Medical History Vital Signs: Last Vital Signs Temp 98.9 F 04/30/18 09:54 Pulse 85 04/30/18 09:54 Resp 18 04/30/18 09:54 BP 152/98 H 04/30/18 09:54 Pulse Ox 97 04/30/18 09:54 - Medical History PMH: HTN, Hypercholesterolemia, Hypothyroidism Denies: Chronic Kidney Disease Surgical History: Appendectomy, - [facility] Procedures DRAINAGE OF PELVIC CAVITY, PERCUTANEOUS ENDOSCOPIC APPROACH (09/22/17) INJECT/INFUSE NEC (03/21/14) RELEASE PERITONEUM, PERCUTANEOUS ENDOSCOPIC APPROACH (09/22/17) RESECTION OF APPENDIX, PERCUTANEOUS ENDOSCOPIC APPROACH (09/22/17) RESECTION OF CECUM, PERCUTANEOUS ENDOSCOPIC APPROACH (09/22/17) Family History: States: Unknown Family Hx - Social History Hx Tobacco Use: No Hx Alcohol Use: No Hx Substance Use: No - Immunization History Hx Tetanus Toxoid Vaccination: No Hx Influenza Vaccination: No Hx Pneumococcal Vaccination: No <TangLiliam busby - Last Filed: 04/30/18 13:36> Vital Signs: Last Vital Signs Temp 98 F 04/30/18 12:21 Pulse 70 04/30/18 12:21 Resp 18 04/30/18 12:21 BP 153/94 H 04/30/18 12:21 Pulse Ox 97 04/30/18 13:36 - [facility] Procedures DRAINAGE OF PELVIC CAVITY, PERCUTANEOUS ENDOSCOPIC APPROACH (09/22/17) INJECT/INFUSE NEC (03/21/14) RELEASE PERITONEUM, PERCUTANEOUS ENDOSCOPIC APPROACH (09/22/17) RESECTION OF APPENDIX, PERCUTANEOUS ENDOSCOPIC APPROACH (09/22/17) RESECTION OF CECUM, PERCUTANEOUS ENDOSCOPIC APPROACH (09/22/17) <Gopal Fink DO - Last Filed: 04/30/18 18:36> Review Of Systems Constitutional: Negative for: Fever, Chills, Sweats, Weakness, Weight loss Gastrointestinal: Positive for: Constipation. Negative for: Nausea, Vomiting, Abdominal Pain, Diarrhea Genitourinary: Negative for: Dysuria, Frequency, Hematuria, Vaginal Discharge, Vaginal Bleeding, Pelvic Pain <Liliam Oakes - Last Filed: 04/30/18 13:36> Physical Exam - Physical Exam Appears: Well, Non-toxic, No Acute Distress Skin: Normal Color, Warm, Dry Head: Atraumatic, Normacephalic Cardiovascular: Rhythm Regular Respiratory: Normal Breath Sounds, No Decreased Breath Sounds, No Rales, No Rhonchi, No Wheezing Gastrointestinal/Abdominal: Normal Exam, Bowel Sounds, Soft, No Tenderness, No Organomegaly, No Mass, Distention, No Guarding, No Rebound, No Hernia Back: Normal Inspection, No CVA Tenderness Neurological/Psych: Oriented x3, Normal Speech, Normal Cognition <Liliam Oakes - Last Filed: 04/30/18 13:36> ED Course And Treatment - Laboratory Results Result Diagrams: 04/30/18 10:34 04/30/18 10:34 O2 Sat by Pulse Oximetry: 97 <Liliam Oakes - Last Filed: 04/30/18 13:36> - Laboratory Results Result Diagrams: 04/30/18 10:34 04/30/18 10:34 Lab Results: Total Bilirubin 0.3 mg/dL (0.2-1.3) 04/30/18 10:34 AST 27 U/L (14-36) 04/30/18 10:34 ALT 26 U/L (9-52) 04/30/18 10:34 Alkaline Phosphatase 67 U/L (38-126) 04/30/18 10:34 Total Protein 7.8 g/dL (6.3-8.3) 04/30/18 10:34 Albumin 4.6 g/dL (3.5-5.0) 04/30/18 10:34 Globulin 3.2 gm/dL (2.2-3.9) 04/30/18 10:34 Albumin/Globulin Ratio 1.5 (1.0-2.1) 04/30/18 10:34 Lipase 157 U/L (23-300) 04/30/18 10:34 Urine Color Yellow (YELLOW) 04/30/18 10:34 Urine Clarity Clear (Clear) 04/30/18 10:34 Urine pH 6.0 (5.0-8.0) 04/30/18 10:34 Ur Specific [place] 1.014 (1.003-1.030) 04/30/18 10:34 Urine Protein Negative mg/dL (NEGATIVE) 04/30/18 10:34 Urine Glucose (UA) Normal mg/dL (Normal) 04/30/18 10:34 Urine Ketones Negative mg/dL (NEGATIVE) 04/30/18 10:34 Urine Blood Negative (NEGATIVE) 04/30/18 10:34 Urine Nitrate Negative (NEGATIVE) 04/30/18 10:34 Urine Bilirubin Negative (NEGATIVE) 04/30/18 10:34 Urine Urobilinogen Normal mg/dL (0.2-1.0) 04/30/18 10:34 Ur Leukocyte Esterase Trace Piyush/uL (Negative) 04/30/18 10:34 Urine WBC (Auto) 2 /hpf (0-5) 04/30/18 10:34 Urine RBC (Auto) 1 /hpf (0-3) 04/30/18 10:34 Ur Squamous Epith Cells 2 /hpf (0-5) 04/30/18 10:34 <Gopal Fink DO - Last Filed: 04/30/18 18:36> Medical Decision Making Medical Decision Making: Diverticulitis vs Partial SBO vs Constipation - CBC, CMP, Lipase, CT Abdomen - Pepcid, Zofran, IVF - Will reassess -- After reviewing CT Abdomen, found to have acute diverticulitis. Patient is afebrile, vitals stable, no abdominal pain, diarrhea. This is the patient's first occurrence of diverticulitis. Will treat with Cipro and Flagyl x 10 day course (with the addition of an over the counter probiotic x 1 month), encourage follow up with GI once diverticulitis has resolved. Will educate patient on having a bland diet. If patient develops fevers, chills, abdominal pain, instructed to return to the ED. <Liliam Oakes - Last Filed: 04/30/18 13:36> Disposition Doctor Will See Patient In The: Office Counseled Patient/Family Regarding: Need For Followup, Rx Given - Disposition Disposition Time: 13:36 <Liliam Oakes - Last Filed: 04/30/18 13:36> - Disposition Disposition Time: 12:45 <Gopal Fink DO - Last Filed: 04/30/18 18:36> - Disposition Referrals: [facility] Christine Infante, [Non-Staff] - Disposition: HOME/ ROUTINE Condition: GOOD Additional Instructions: YAMILET RIZO, thank you for letting us take care of you today. The emergency medical care you received today was directed at your acute symptoms. If you were prescribed any medication, please fill it and take as directed. It may take several days for your symptoms to resolve. Return to the Emergency Department if your symptoms worsen, do not improve, or if you have any other problems. Please contact your doctor or call one of the physicians/clinics you have been referred to that are listed on the Patient Visit Information form that is included in your discharge packet. Bring any paperwork you were given at discharge with you along with any medications you are taking to your follow up visit. Our treatment cannot replace ongoing medical care by a primary care provi sri outside of the emergency department. Thank you for allowing the [facility] team to be part of your care today. Follow up with your primary care doctor in 2-3 days for re-evaluation and further management. YAMILET RIZO, yesenia por dejarnos cuidar de ti hoy. La atencin mdica de jose g gencia que recibi hoy se dirigi a coy sntomas agudos. Si le recetaron algn medicamento, llnelo y tmelo segn las indicaciones. Los sntomas pueden tardar varios haywood en resolverse. Regrese al Departamento de Emergencias si coy sntomas empeoran, no mejoran o si tiene otros problemas. Comunquese con sigala mdico o llame a kelin de los mdicos / clnicas a los que shaffer sido referido que figuran en el formulario de Informacin de visita al paciente que se incluye en sigala paquete de anjel. Lleve todos los documentos que le entregaron al momento del anjel junto con todos los medicamentos que est tomando para sigala visita de seguimiento. Nuestro tratamiento no puede reemplazar la atencin mdica continua por un proveedor de atencin primaria fuera del departamento de emergencias. Yesenia por permitir que el equipo de [facility] sea parte de sigala atencin hoy. Guerline un seguimiento con sigala mdico de atencin primaria en 2-3 haywood para delia reevaluacin y manejo adicional. 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 KEITH has examined the patient and agrees with the treatment plan. <Gopal Fink DO - Last Filed: 04/30/18 18:36>
[2018-04-30 10:41] LABS: BASO % 0.5 % (0.0-2.0); EOS % 0.8 % (0.0-4.0); HEMOGLOBIN 12.8 g/dL (11.0-16.0); LYMPH # 2.2 K/uL (1.0-4.3); LYMPH % 45.1 % (20.0-40.0); MEAN CORPUSCULAR HEMOGLOBIN 30.9 pg (27.0-31.0); MEAN PLATELET VOLUME 8.9 fL (7.2-11.7); MONO # 0.4 K/uL (0.0-0.8); MONO % 7.7 % (0.0-10.0); NEUT # 2.3 K/uL (1.8-7.0); NEUT % 45.9 % (50.0-75.0); RBC 4.15 Mil/uL (3.80-5.20)
[2018-04-30 10:50] LABS: SQUAMOUS EPITHIAL 2 /hpf (0-5); URINE BILIRUBIN NEGATIVE (NEGATIVE); URINE BLOOD NEGATIVE (NEGATIVE); URINE CLARITY Clear (Clear); URINE COLOR Yellow (YELLOW); URINE GLUCOSE (UA) NORMAL (Normal); URINE LEUKOCYTE ESTERASE TRACE Leu/uL (Negative); URINE PROTEIN NEGATIVE (NEGATIVE); URINE UROBILINOGEN NORMAL mg/dL (0.2-1.0)
[2018-04-30 10:54] LABS: ALB/GLOB RATIO 1.5 (1.0-2.1); ALBUMIN 4.6 g/dL (3.5-5.0); ALT/SGPT 26 U/L (9-52); AST/SGOT 27 U/L (14-36); BLOOD UREA NITROGEN 15 mg/dL (7-17); CALCIUM 9.2 mg/dl (8.6-10.4); GFR NON-AFRICAN AMERICAN > 60; LIPASE 157 U/L (23-300)
[2018-04-30] MEDS ORDERED: Sodium Chloride 0.9% 1,000 ML ONE (11:07)
[2018-04-30] MEDS ORDERED: Iodixanol 320 MG/ML 100 ML BOTTLE IV ONE (11:17)
[2018-04-30 12:23] VITALS: BP 153/94; PULSE 70; TEMP 98
--- NOTE | 2018-04-30 12:29 | CT ---
Date of service: 04/30/2018 PROCEDURE: CT Abdomen and Pelvis with contrast HISTORY: diffuse abd pain COMPARISON: CT abdomen pelvis without contrast performed 01/10/18 TECHNIQUE: Contrast dose: 100 mL Visipaque 320 IV Radiation dose: Total exam DLP = 1061.05 mGy-cm. This CT exam was performed using one or more of the following dose reduction techniques: Automated exposure control, adjustment of the mA and/or kV according to patient size, and/or use of iterative reconstruction technique. FINDINGS: LOWER THORAX: No visible consolidation, pleural effusion, or pneumothorax. Small hiatal hernia. LIVER: Numerous too small to characterize hepatic hypodensities measuring up to approximately 9 mm, statistically likely cysts or hemangiomas. GALLBLADDER AND BILE DUCTS: Unremarkable. PANCREAS: Unremarkable. SPLEEN: Unremarkable. ADRENALS: Unremarkable. KIDNEYS AND URETERS: The kidneys enhance symmetrically. No hydronephrosis or obstructing calculus identified. 4.7 cm left upper pole hypodense mass measures approximately 10 HU consistent with a cyst. Numerous additional bilateral renal hypodensities including those too small to characterize but likely cysts. VASCULATURE: No aortic aneurysm. Mild atherosclerotic calcification of the aorta. BOWEL: Stomach is nondistended. Lack of oral contrast limits evaluation for bowel pathology. Bowel loops appear within normal limits of caliber without evidence of obstruction. Mild wall thickening of the sigmoid colon with adjacent inflammatory changes; appearance consistent with acute diverticulitis. APPENDIX: The appendix is not identified. Surgical clips are noted at the level of the cecum presumably due to prior appendectomy. Correlate with surgical history. No secondary signs of acute appendicitis. PERITONEUM: No significant free fluid. No definite free air. LYMPH NODES: No bulky adenopathy identified. BLADDER: Unremarkable. REPRODUCTIVE: Uterus is present. Probable fibroids. BONES: Mild degenerative changes. OTHER FINDINGS: None. IMPRESSION: Mild wall thickening of the sigmoid colon with adjacent inflammatory changes; appearance consistent with acute diverticulitis. Correlate clinically. Additional findings as above.
[2018-04-30 12:50] VITALS: O2SAT 97
== END 2018-04-30 13:31 | disposition home or self-care (01) ==
LOC: C.ER 09:45
DX: K57.32 Diverticulitis of large intestine without perforation or abscess without bleeding (principal)
CPT/HCPCS: 74177; 80053; 81001; 83690; 85025; 87086; 96374; 99285; J7030; Q9967

== ENCOUNTER 2018-07-09 08:38 | Emergency (ER) | payer SELFPAY ==
[2018-07-09 08:38] VITALS: BMI 34.4
[2018-07-09 08:44] VITALS: RESP 20
[2018-07-09 09:26] LABS: SQUAMOUS EPITHIAL 3 /hpf (0-5); URINE BILIRUBIN NEGATIVE (NEGATIVE); URINE BLOOD 1+ (NEGATIVE); URINE CLARITY Clear (Clear); URINE COLOR Straw (YELLOW); URINE GLUCOSE (UA) NORMAL (Normal); URINE LEUKOCYTE ESTERASE NEG Leu/uL (Negative); URINE PROTEIN NEGATIVE (NEGATIVE); URINE UROBILINOGEN NORMAL mg/dL (0.2-1.0)
--- NOTE | 2018-07-09 09:42 | C.PDOC ---
History Of Present Illness 63 y/o female c/o 3 week hx of back pain bilateral with urinary frequency and urgency. no fever or chills. no abdominal pain, sts stomach is gurgling. no nausea or vomiting. Time Seen by Provider: 07/09/18 09:00 Chief Complaint (Nursing): Back Pain History Per: Patient History/Exam Limitations: no limitations Onset/Duration Of Symptoms: Days (21) Current Symptoms Are (Timing): Still Present Quality Of Discomfort: "Pain" Severity: Mild Associated Symptoms: None Past Medical History Reviewed: Historical Data, Nursing Documentation, Vital Signs Vital Signs: Last Vital Signs Temp 98.6 F 07/09/18 08:40 Pulse 90 07/09/18 08:40 Resp 20 07/09/18 08:40 BP 164/95 H 07/09/18 08:40 Pulse Ox 100 07/09/18 08:40 Primary Care Provider: Jamal Perez Medical History PMH: HTN, Hypercholesterolemia, Hypothyroidism Denies: Chronic Kidney Disease Surgical History: Appendectomy, - [facility] Procedures DRAINAGE OF PELVIC CAVITY, PERCUTANEOUS ENDOSCOPIC APPROACH (09/22/17) INJECT/INFUSE NEC (03/21/14) RELEASE PERITONEUM, PERCUTANEOUS ENDOSCOPIC APPROACH (09/22/17) RESECTION OF APPENDIX, PERCUTANEOUS ENDOSCOPIC APPROACH (09/22/17) RESECTION OF CECUM, PERCUTANEOUS ENDOSCOPIC APPROACH (09/22/17) Family History: States: Unknown Family Hx - Social History Hx Tobacco Use: No Hx Alcohol Use: No Hx Substance Use: No - Immunization History Hx Tetanus Toxoid Vaccination: No Hx Influenza Vaccination: No Hx Pneumococcal Vaccination: No Review Of Systems Constitutional: Negative for: Fever, Chills Respiratory: Negative for: Cough, Shortness of Breath Gastrointestinal: Negative for: Nausea, Vomiting, Abdominal Pain, Diarrhea Genitourinary: Positive for: Frequency, Other (urinary urgency). Negative for: Dysuria Musculoskeletal: Positive for: Back Pain Skin: Negative for: Rash Neurological: Negative for: Weakness, Numbness Physical Exam - Physical Exam Appears: Non-toxic, No Acute Distress Skin: Warm, Dry Head: Atraumatic, Normacephalic Neck: Supple Cardiovascular: Rhythm Regular, No Murmur Respiratory: No Decreased Breath Sounds, No Rales, No Rhonchi, No Wheezing Gastrointestinal/Abdominal: Bowel Sounds, Soft, No Tenderness, No Distention, No Guarding, No Rebound Back: No CVA Tenderness Neurological/Psych: Oriented x3, Normal Speech, Normal Cognition ED Course And Treatment - Laboratory Results Result Diagrams: 07/09/18 09:48 07/09/18 09:48 Lab Results: Urine Color Straw (YELLOW) 07/09/18 09:11 Urine Clarity Clear (Clear) 07/09/18 09:11 Urine pH 6.0 (5.0-8.0) 07/09/18 09:11 Ur Specific [place] 1.006 (1.003-1.030) 07/09/18 09:11 Urine Protein Negative mg/dL (NEGATIVE) 07/09/18 09:11 Urine Glucose (UA) Normal mg/dL (Normal) 07/09/18 09:11 Urine Ketones Negative mg/dL (NEGATIVE) 07/09/18 09:11 Urine Blood 1+ (NEGATIVE) H 07/09/18 09:11 Urine Nitrate Negative (NEGATIVE) 07/09/18 09:11 Urine Bilirubin Negative (NEGATIVE) 07/09/18 09:11 Urine Urobilinogen Normal mg/dL (0.2-1.0) 07/09/18 09:11 Ur Leukocyte Esterase Neg Piyush/uL (Negative) 07/09/18 09:11 Urine WBC (Auto) < 1 /hpf (0-5) 07/09/18 09:11 Urine RBC (Auto) 3 /hpf (0-3) 07/09/18 09:11 Ur Squamous Epith Cells 3 /hpf (0-5) 07/09/18 09:11 O2 Sat by Pulse Oximetry: 100 (RA) Pulse Ox Interpretation: Normal - CT Scan/US CT-Abd & Pelv. Other Rad Studies (CT/US): Read By Radiologist, Radiology Report Reviewed CT/US Interpretation: IMPRESSION: 1. Moderate left colonic diverticular change including descending and sigmoid segments without definite acute changes appreciable at this time. No bowel obstruction evident. 2. Small left lobe hepatic cyst reiterated. Additional smaller lucencies not as well identified currently due to lack images contrast as compared prior contrast CT 04/30/2018. 3. Bilateral renal cysts reiterated though less well characterized given lack of intravenous contrast. No radiodense urolithiasis or obstructive uropathy bilaterally. Urinary bladder largely decompressed and unremarkable appearing. 4. Prior appendectomy likely. Clinically correlate. Medical Decision Making Medical Decision Making: pt with 3 week hx bilateral flank pain, urinary frequency and urgency, few rbc. ua, labs, ct abdomen stone protocol, re-eval. . no kidney stones on ct, chronic kidney cysts found. pt walking around ed in no acute distress, d/c home, f/u pmd and urology. Disposition Counseled Patient/Family Regarding: Studies Performed, Diagnosis, Need For Followup - Disposition Referrals: Jamal Perez MD [Medical Doctor] - Kyle Galdamez MD [Staff Provider] - Disposition: HOME/ ROUTINE Disposition Time: 12:14 Condition: GOOD Additional Instructions: Guerline un seguimiento con el Dr. Perez y tambin con el Dr. Brody Galdamez (urlogo) para la miccin frecuente, dolor en el flanco. No se observan clculos renales en la tomografa computarizada, no hay infeccin en la orina. Instructions: Dysuria, Adult (DC) Forms: Gen Discharge Inst Turkish, [facility] (Turkish) Print Language: LAO - Clinical Impression Clinical Impression: Flank pain, Urinary frequency
[2018-07-09 09:52] LABS: BASO % 0.4 % (0.0-2.0); EOS # 0.1 K/uL (0.0-0.7); HEMOGLOBIN 12.4 g/dL (11.0-16.0); LYMPH # 2.4 K/uL (1.0-4.3); LYMPH % 39.8 % (20.0-40.0); MEAN CORPUSCULAR HEMOGLOBIN 31.1 pg (27.0-31.0); MEAN CORPUSCULAR HGB CONC 33.9 g/dL (33.0-37.0); MONO # 0.3 K/uL (0.0-0.8); MONO % 5.6 % (0.0-10.0); NEUT # 3.2 K/uL (1.8-7.0); NEUT % 53.2 % (50.0-75.0); NRBC % 0.1 % (0.0-2.0); RBC 3.97 Mil/uL (3.80-5.20); RED CELL DISTRIBUTION WIDTH 14.3 % (11.5-14.5); WHITE BLOOD COUNT 6.1 K/uL (4.8-10.8)
[2018-07-09 10:05] LABS: ALB/GLOB RATIO 1.3 (1.0-2.1); ALBUMIN 4.5 g/dL (3.5-5.0); ALT/SGPT 29 U/L (9-52); AST/SGOT 30 U/L (14-36); BLOOD UREA NITROGEN 17 mg/dL (7-17); CALCIUM 9.6 mg/dl (8.6-10.4); GFR NON-AFRICAN AMERICAN > 60
--- NOTE | 2018-07-09 11:49 | CT ---
Date of service: 07/09/2018 PROCEDURE: CT Abdomen and Pelvis without intravenous contrast HISTORY: flank pain, hematuria COMPARISON: None. TECHNIQUE: Helical CT of the abdomen and pelvis was performed without oral or intravenous contrast as per referring physician request. Coronal and sagittal reformats were generated. Radiation dose: Total exam DLP = 1341.36 mGy-cm. This CT exam was performed using one or more of the following dose reduction techniques: Automated exposure control, adjustment of the mA and/or kV according to patient size, and/or use of iterative reconstruction technique. FINDINGS: LOWER THORAX: Small hiatal hernia reiterated. Mild cardiomegaly again evident. Trace emphysema right lower lobe base. Ground-glass opacity bilateral lower lobes again evident mildly. LIVER: Small left lobe liver cyst measures 1.3 cm, stable in size. Previously demonstrated additional left and right lobe hepatic lucencies not clearly identified due lack images contrast. Gross intrahepatic biliary dilatation appreciable. GALLBLADDER AND BILE DUCTS: Unremarkable. PANCREAS: Unremarkable. No gross lesion or ductal dilatation. SPLEEN: Unremarkable. ADRENALS: Unremarkable. No mass. KIDNEYS AND URETERS: Bilateral renal cysts, left greater than right kidney, again evident though somewhat less well characterized given lack of intravenous contrast. No obstructive uropathy or perinephric reactive change bilaterally. No radiodense urolithiasis bilaterally. VASCULATURE: Unremarkable. No aortic aneurysm. No aortic atherosclerotic calcification or mural plaque present. BOWEL: The stomach is collapsed not well evaluated. Moderate diverticular changes affecting the descending and sigmoid colon remain nonacute. No bowel obstruction evident grossly. Postoperative changes at the cecal base again suggest prior appendectomy. Clinically correlate. APPENDIX: No CT evidence of appendicitis. Likely postoperative for appendectomy at the cecal base as discussed in bowel section above. Clinically correlate. PERITONEUM: Unremarkable. No free fluid. No free air. LYMPH NODES: Unremarkable. No enlarged lymph nodes. BLADDER: Unremarkable. REPRODUCTIVE: Unremarkable. BONES: No acute fracture. OTHER FINDINGS: None. IMPRESSION: 1. Moderate left colonic diverticular change including descending and sigmoid segments without definite acute changes appreciable at this time. No bowel obstruction evident. 2. Small left lobe hepatic cyst reiterated. Additional smaller lucencies not as well identified currently due to lack images contrast as compared prior contrast CT 04/30/2018. 3. Bilateral renal cysts reiterated though less well characterized given lack of intravenous contrast. No radiodense urolithiasis or obstructive uropathy bilaterally. Urinary bladder largely decompressed and unremarkable appearing. 4. Prior appendectomy likely. Clinically correlate.
[2018-07-09 12:28] VITALS: BP 139/88; PULSE 71; TEMP 99
[2018-07-09 12:41] VITALS: O2SAT 100
== END 2018-07-09 12:33 | disposition home or self-care (01) ==
LOC: C.ER 08:38
DX: R35.0 Frequency of micturition (principal); R10.9 Unspecified abdominal pain

== ENCOUNTER 2018-08-01 19:43 | Emergency (ER) | payer SELFPAY | END 2018-08-01 21:28 | disposition home or self-care (01) | LOC: C.ER 19:43 ==